=== PATIENT | female | born 1975 | race Two or more races ===

== ENCOUNTER 2016-10-05 10:57 | Inpatient (IN) | payer OTHER ==
[~2016-10-05] VITALS: Ht 167.6 cm; Wt 101.2 kg
[2016-10-05] MEDS ORDERED: MAG HYDROX/AL HYDROX/SIMETH 30 ML UDC PO PRN (14:00)
[2016-10-05] MEDS ORDERED: LORAZEPAM 1 MG TABLET FOR INSOMNIA PO PRN ×2 (14:00→22:00)
[2016-10-05] MEDS ORDERED: MAGNESIUM HYDROXIDE 30 ML UDC PO PRN (14:00)
[2016-10-05] MEDS ORDERED: LORAZEPAM 1 MG TABLET FOR AGITATION PO PRN (14:00)
[2016-10-05 14:52] VITALS: BP 141/80
--- NOTE | 2016-10-05 15:04 | NUR ---
MS/public transit bus driver Patient admitted from Dr Tello's office for clinical trial for new schizo medication. Fully admitted, skin intact, no IV access, awaiting orders from Dr Tello.
--- NOTE | 2016-10-05 15:07 | NUR ---
MS/RN MRSA MRSA swab obtained.
[2016-10-05 15:47] VITALS: BP 131/86
[2016-10-05 16:17] VITALS: BP 131/86
--- NOTE | 2016-10-05 17:41 | NUR ---
MS/RN Orders Dr Tello called for second time to get clinical trial orders.
--- NOTE | 2016-10-05 18:38 | NUR ---
MS/RN End note No changes at this time, last pain medication administered at 1820. Dressing on sacral area changed, redressed with meplielx. Will endorse to hourly shift. Addendum: 10/05/16 at 1938 by JEFFERSON AGUILERA RN WRONG NOTE, WRONG PT.
--- NOTE | 2016-10-05 18:38 | NUR ---
MS/RN End note Dr Tello at bedside giving orders. Patient has remained calm and cooperative.
[2016-10-05 19:00] VITALS: BP 126/79
--- NOTE | 2016-10-05 19:30 | NUR ---
MS RN NOTES RECEIVED ON BED AWAKE,ALERT,ORIENTED X4,ON CLINICAL TRIALS FOR PSYCHE MEDS.GIOVANNI AND QUIET,ABLE TO VERBALIZED NEEDS.NO SALINE LOCK,AMBULATORY ,CALL LIGHT IN [facility],NEEDS ANTICIPATED.
[2016-10-05 20:00] VITALS: BP 126/74
[2016-10-05] MEDS: ARIPIPRAZOLE 5 MG TABLET PO SCH (21:59)
--- NOTE | 2016-10-05 22:00 | NUR ---
MS RN NOTES ABILIFY 5MG PO GIVEN ORDERED.REMAINS CALM.
--- NOTE | 2016-10-06 07:25 | NUR ---
MS RN NOTES CALM AND QUIET THRU OUT SHIFT,SLEPT 8 HOURS AT NOC.WILL CONTINUE TO MONITOR BEHAVIOR.REPORT GIVEN TO CRYSTAL ABURTO FOR ANG.
--- NOTE | 2016-10-06 07:45 | NUR ---
RN NOTES RECEIVED PT IN BED. SLEEPING BUT EASY TO AROUSE. IN NO APPARENT DISTRESS. RESPIRATIONS EVEN AND UNLABORED. WILL CONTINUE TO MONITOR. PT'S CALL LIGHT WITHIN REACH
[2016-10-06 08:00] VITALS: BP 102/50
[2016-10-06 08:06] VITALS: BP 102/50
[2016-10-06 16:58] VITALS: BP 118/70
--- NOTE | 2016-10-06 17:58 | NUR ---
RN NOTES PT IN BED. AWAKE, ALERT, ORIENTED X 3. IN NO APPARENT DISTRESS. RESPIRATIONS EVEN AND UNLABORED. DENIES ANY PAIN OR DISCOMFORT. PT NOTED WITH PLEASANT BEHAVIOR- COOPERATIVE TO STAFF. NO DISPLAYED BEHAVIORS THIS SHIFT. WILL ENDORSE TO ONCOMING SHIFT
--- NOTE | 2016-10-06 19:10 | NUR ---
MS RN NOTES RECEIVED PT SITTING UP IN BED, A/O X4. VERBALLY RESPONSIVE , ABLE TO VERBALIZE NEEDS. NO DISTRESS, NO SOB. RESPIRATION IS EVEN AND UNLABORED. DENIES ANY PAIN OR DISCOMFORT AT THIS TIME. ALL NEEDS ATTENDED AND MET. KEPT COMFORTABLE. AFEBRILE. CALL LIGHT WITHIN REACH. WILL CONTINUE TO MONITOR.
[2016-10-06 20:00] VITALS: BP 137/81
[2016-10-06 22:00] VITALS: BP 137/81
[2016-10-06] MEDS: ARIPIPRAZOLE 5 MG TABLET PO SCH (22:03)
--- NOTE | 2016-10-07 00:30 | NUR ---
MS RN NOTES PT ASLEEP AT THIS TIME. NO DISTRESS , NO SOB NOTED. ALL NEEDS ATTENDED AND ET. CALL LIGHT WITHIN REACH. WILL CONT TO MONITOR.
--- NOTE | 2016-10-07 06:41 | NUR ---
MS RN NOTES PT ASLEEP AT THIS TIME, AROUSES EASILY. NO ACUTE DISTRESS, NO SOB NOTED. RESPIRATION IS EVEN AND UNLABORED. NO C/O PAIN OR DISCOMFORT AT THIS TIME. SKIN IS WARM AND DRY TO TOUCH. ALL NEEDS ATTENDED AND MET. KEPT COMFORTABLE. AFEBRILE. CALL LIGHT WITHIN REACH. SAFETY PRECAUTIONS OBSERVED. WILL ENDORSE TO NEXT SHIFT FOR ANG.
--- NOTE | 2016-10-07 07:20 | NUR ---
MS RN NOTES : HOURS OF SLEEP : 8
--- NOTE | 2016-10-07 07:30 | NUR ---
MS/RN Patient received Patient received from rn shift mgr. No needs at this time, will continue to monitor and ensure safety.
[2016-10-07 08:00] VITALS: BP 140/79
[2016-10-07 16:00] VITALS: BP 130/92
--- NOTE | 2016-10-07 18:17 | NUR ---
MS/RN End note Remains with auditory hallucinations, at times appears paranoid and delusional. Cooperative with plan of care. Will endorse to [facility] shift lead.
--- NOTE | 2016-10-07 19:18 | NUR ---
MS RN NOTES RECEIVED PT SITTING UP IN BED. A/OX 3. ABLE TO VERBALIZE NEEDS. NO DISTRESS, NO SOB NOTED. NO C/O PAIN OR DISCOMFORT. ALL NEEDS ATTENDED AND MET. AFEBRILE. SAFETY PRECAUTIONS OBSERVED. CALL LIGHT WITHIN REACH. WILL CONT TO MONITOR.
[2016-10-07 20:00] VITALS: BP 129/77
[2016-10-07 22:00] VITALS: BP 129/77
[2016-10-07] MEDS: ARIPIPRAZOLE 5 MG TABLET PO SCH (22:44)
--- NOTE | 2016-10-08 07:43 | NUR ---
MS RN NOTES PT RESTING AT THIS TIME, AROUSES EASILY. A/OX 3. ABLE TO VERBALIZE NEEDS. NO DISTRESS, NO SOB NOTED. NO C/O PAIN OR DISCOMFORT. ALL NEEDS ATTENDED AND MET. AFEBRILE. SAFETY PRECAUTIONS OBSERVED. CALL LIGHT WITHIN REACH. WILL ENDORSE TO NEXT SHIFT FOR ANG.
--- NOTE | 2016-10-08 07:48 | NUR ---
MS RN NOTES HOURS OF SLEEP : 7
[2016-10-08 08:00] VITALS: BP 148/89
--- NOTE | 2016-10-08 08:00 | NUR ---
MS/RN Patient received Patient received from feeder switchboard operator, no needs at this time, will continue to monitor.
[2016-10-08 16:00] VITALS: BP 133/79
--- NOTE | 2016-10-08 18:15 | NUR ---
MS/RN End note No changes in care, calm and cooperative throughout shift. No behavior concerns, will endorse to dispatch machine runner.
--- NOTE | 2016-10-08 19:30 | NUR ---
MS RN OPENING NOTES: PATIENT SITTING ON BED, AOX4, ON ROOM AIR, BREATHING EVEN AND UNLABORED. APPEARS PLEASANT AND CALM AND IN NO DISTRESS. ABLE TO MAKE NEEDS KNOWN. DENIES ANY PAIN AT THIS TIME. PROVIDED FOR COMFORT AND SAFETY. WILL CONT TO MONITOR.
[2016-10-08 20:00] VITALS: BP 133/79
[2016-10-08 22:00] VITALS: BP 133/79
[2016-10-08] MEDS: ARIPIPRAZOLE 2 MG TABLET PO SCH (22:36)
[2016-10-09] MEDS: ACETAMINOPHEN ES 500 MG TABLET PO PRN (01:10)
--- NOTE | 2016-10-09 01:15 | NUR ---
RN NOTES: PATIENT COMPLAINED OF HEADACHE, AND ASKED FOR TYLENOL. ADMINISTERED TYLENOL 1000 MG PO PRN. OFFERED SOME SNACKS. WILL CON TO MONITOR.
--- NOTE | 2016-10-09 07:03 | NUR ---
MS RN CLOSING NOTES: PATIENT IN BED, AOX4. ON ROOM AIR, BREATHING EVEN AND UNLABORED. NO ACUTE CHANGE IN CONDITION NOTED THROUGH SHIFT. BEHAVIOR WAS PLEASANT AND CALM THROUGH NIGHT. WAS ABLE TO HAVE 5 HOURS OF SLEEP. PROVIDED FOR COMFORT AND SAFETY. WILL ENDORSE TO AM RN FOR ANG.
--- NOTE | 2016-10-09 07:10 | NUR ---
MS RN NOTES RECEIVED PATIENT IN BED SLEEPING, AROUSES EASILY. BREATHING EVEN AND NON LABORED. CALL LIGHT WITHIN REACH. PATIENT IS ON CLINICAL TRIAL UNDER DR. SYKES. WILL CON TO MONITOR.
[2016-10-09 08:00] VITALS: BP 133/78
[2016-10-09 16:00] VITALS: BP 123/72
[2016-10-09 16:10] VITALS: BP 123/72
--- NOTE | 2016-10-09 18:25 | NUR ---
MS RN CLOSING NOTES PATIENT IN BED, NOT IN DISTRESS. V/S REMAINS STABLE, APPEARS CALM AND RELAXED. PATIENT IS AMBULATORY, COOPERATIVE AND NO EPISODE OF AGITATED BEHAVIOR DURING THE SHIFT. ON CLINICAL TRIAL STUDY. NO C/O PAIN OR ANY DISCOMFORT. CALL LIGHT WITHIN REACH. WILL ENDORSE TO CARPENTER REPAIRER RN FOR CONTINUITY OF CARE.
--- NOTE | 2016-10-09 19:55 | NUR ---
MS RN INITIAL NOTES: RECEIVED REPORT FROM PITER ABURTO. PT ON BED, AWAKE, A/O X3, CALM AND COOPERATIVE. ON ROOM AIR RESPIRATION EVEN AND UNLABORED. DENIES ANY PAIN OR DISCOMFORT AT THIS TIME. NO IV PER MD. SAFETY PRECAUTIONS FOR FALL INITIATED CALL LIGHT IN REACH, WILL CONTINUE TO MONITOR
[2016-10-09 20:00] VITALS: BP 136/72
--- NOTE | 2016-10-09 20:00 | NUR ---
MS RN NOTES: PT ON CLINICAL TRIAL BY DR SYKES
--- NOTE | 2016-10-09 21:30 | NUR ---
ms rn notes: pt claimed she doesnt have any plan of hurting herself, pt calm and cooperative, interacts when asked, very appreciative and thankful.
[2016-10-09] MEDS: ARIPIPRAZOLE 2 MG TABLET PO SCH (22:34)
--- NOTE | 2016-10-10 02:08 | NUR ---
MS RN NOTES: SEEN PT SLEEPING, APPEARS CALM AND COMFORTABLE, NO FACIAL GRIMACE NOTED
--- NOTE | 2016-10-10 07:04 | NUR ---
ms rn closing notes: pt on bed, awake, remains a/o x3, no sob noted, denies any plan of hurting herself, remains calm and cooperative. hours of sleep is 8hrs. vs remains stable, needs attended. safety precautions for fall remains engaged. call light in reach. will endorse to day rn for loki.
--- NOTE | 2016-10-10 07:10 | NUR ---
MS RN OPENING RECEIVED PATIENT A/OX4 DENIES PAIN, SOB DIFFICULTY BREATHING. PATIENT APPEARS COMFORTABLE AND STATES NO NEEDS. RESPIRATIONS EQUAL AND UNLABORED. CALL LIGHT IN REACH, BED LOWERED AND LOCKED, RAILS UPX2 FOR SAFETY AND WILL ROUND Q2H OR LESS PER NEEDS
[2016-10-10 08:00] VITALS: BP 135/91
[2016-10-10 16:00] VITALS: BP 123/79
[2016-10-10 20:00] VITALS: BP 123/85
[2016-10-10 20:07] VITALS: BP 123/85
[2016-10-10] MEDS: ARIPIPRAZOLE 2 MG TABLET PO SCH (21:40)
--- NOTE | 2016-10-11 07:09 | NUR ---
MS RN CLOSING PT STABLE NO COMPLICATIONS. PLEASANT THROUGHOUT DAY AND NIGHT. PATIENT ABLE TO SLEEP 8 HOURS. ALL NEEDS MET AND CALL LIGHT IN REACH, BED LOWERED AND LOCKED, RAILS UPX3 FOR SAFETY. CARE ENDORSED TO RN AT THIS TIME
--- NOTE | 2016-10-11 07:30 | NUR ---
MS/RN Patient received Patient received from warehouse shift supervisor, no needs at this time. Call light within reach, will continue to monitor and ensure safety.
[2016-10-11 08:00] VITALS: BP 132/90
[2016-10-11 16:00] VITALS: BP 130/72
--- NOTE | 2016-10-11 18:47 | NUR ---
MS/RN End note No changes in plan of care at this time. Needs to be NPO from 2100 this evening until blood test tomorrow. Patient aware and in agreement. Seen by Dr Tello, no new orders. Will endorse to shift engineer.
--- NOTE | 2016-10-11 19:30 | NUR ---
MSRN FULLY AWAKE, RESTING QUIETLY, NO NEEDS FOR NOW. REMINDED NOTHING BY MOUTH STARTING 9PM. VERBALIZES UNDERSTANDING.
[2016-10-11 20:18] VITALS: BP 130/71
--- NOTE | 2016-10-11 21:00 | NUR ---
MSRN NPO STARTED, WANTED TO TAKE SHOWER. PATIENT INDEPENDENT, SAFETY PRECAUTIONS EMPHASIZED WELL UNDERSTOOD.
--- NOTE | 2016-10-11 23:45 | NUR ---
YONI SLEEPING AT THIS TIME, CLOSELY WATCHED.
--- NOTE | 2016-10-12 06:51 | NUR ---
MSRN TOTAL HOURS SLEEP 7HOURS
[2016-10-12 08:00] VITALS: BP 135/75
--- NOTE | 2016-10-12 08:00 | NUR ---
MS RN NOTES PATIENT PICKED UP TO TAKE FOR BLOOD DRAW AT CLINIC. PATIENT ALERT, ORIENTED X3 IN NO DISTRESS. AMBULATORY. VS WNL.
--- NOTE | 2016-10-12 11:00 | NUR ---
MS RN NOTES PATIENT RETURNED FROM CLINIC, WILL CONTINUE TO MONITOR.
[2016-10-12] MEDS ORDERED: LORAZEPAM 1 MG TABLET FOR AGITATION PO PRN (14:00)
[2016-10-12 16:00] VITALS: BP 146/83
--- NOTE | 2016-10-12 18:00 | NUR ---
MS RN NOTES PATIENT IN BED RESTING IN STABLE CONDITION NOTED WITH 4 HOURS OF SLEEP WITHIN THE SHIFT. PATIENT COMPLIANT WITH MEDICATION. WILL ENDORSE CARE TO PM SHIFT.
--- NOTE | 2016-10-12 19:40 | NUR ---
MSRN SEEN BY DR SYKES. NO FURTHER ORDERS MADE. PATIENT REMAINS CALM AND COOPERATIVE. ALL NEEDS MADE, TO CONTINUE
[2016-10-12 20:00] VITALS: BP 140/70
[2016-10-12] MEDS ORDERED: LORAZEPAM 1 MG TABLET FOR INSOMNIA PO PRN (22:00)
--- NOTE | 2016-10-12 22:00 | NUR ---
MSRN RESTING QUIETLY. NO NEEDS FOR NOW.
--- NOTE | 2016-10-13 02:44 | NUR ---
YONI HAS BEEN SLEEPING SINCE 2299. CLOSELY WATCHED
--- NOTE | 2016-10-13 06:16 | NUR ---
msrn total hours sleep 8 hrs
--- NOTE | 2016-10-13 07:30 | NUR ---
MS/RN Patient received Patient received from supervisor phosphatic fertilizer. No needs, denies any pain or discomfort. Will continue to monitor.
[2016-10-13 08:00] VITALS: BP 149/72
[2016-10-13] MEDS: INVEST MED MK-8189 MISC 1 CAP EA PO SCH (08:13)
[2016-10-13] MEDS: INVEST MED MK-8189 MISC 1 TAB EA PO SCH (08:14)
--- NOTE | 2016-10-13 09:00 | NUR ---
MS/RN Medications Investigational medications administered as per order.
--- NOTE | 2016-10-13 12:37 | NUR ---
MS/RN Behavior Patient remains calm and cooperative with plan of care. No behavioral outbursts.
[2016-10-13 16:00] VITALS: BP 130/79
--- NOTE | 2016-10-13 18:23 | NUR ---
MS/RN End note No changes in plan of care. Remains cooperative with plan of care. Admits to some auditory hallucinations. Will endorse to table games shift manager.
--- NOTE | 2016-10-13 19:30 | NUR ---
MS RN OPENING NOTES: PATIENT IN BED, AOX4, ON ROOM AIR, BREATHING EVEN AND UNLABORED. APPEARS CALM, AND WHEN ASKED IF THERE IS ANYTHING THAT SHE FEELS OUT OF THE ORDINARY, SHE STATED THAT SHE HAS A THROBBING HEADACHE SCALED AT 10/10, AND THEN ASKED FOR TYLENOL. PATIENT DENIES HAVING ANY VISUAL OR AUDITORY HALLUCINATIONS AT THIS TIME. PROVIDED FOR COMFORT AND SAFETY. WILL CONT TO MONITOR.
[2016-10-13 20:00] VITALS: BP 132/77
[2016-10-13] MEDS: ACETAMINOPHEN ES 500 MG TABLET PO PRN (20:18)
--- NOTE | 2016-10-13 20:19 | NUR ---
RN NOTES: PATIENT COMPLAINED OF THROBBING HEADACHE SCALED 10/10. TYLENOL 1000 MG GIVEN PER REQUEST. WILL CONT TO MONITOR.
[2016-10-13 22:00] VITALS: BP 146/78
--- NOTE | 2016-10-14 06:50 | NUR ---
MS RN CLOSING NOTES: PATIENT IN BED, AOX4, ON ROOM AIR, BREATHING EVEN AND UNLABORED. APPEARS CALM AND IN NO DISTRESS. DENIES ANY PAIN OR HEADACHE AT THIS TIME. PATIENT ALSO DENIES HAVING ANY VISUAL OR AUDITORY HALLUCINATIONS THROUGH SHIFT. WAS ABLE TO HAVE 8 HRS OF SLEEP FOR THIS NIGHT. NO ACUTE CHANGE IN CONDITION NOTED THROUGH SHIFT. PROVIDED FOR COMFORT AND SAFETY. WILL ENDORSE TO AM RN FOR ANG.
--- NOTE | 2016-10-14 07:30 | NUR ---
MS/RN Patient received Patient received from [facility]. No needs, denies pain or discomfort. Calm and cooperative with plan of care. Will continue to monitor and ensure safety.
[2016-10-14 08:00] VITALS: BP 130/95
[2016-10-14] MEDS: INVEST MED MK-8189 MISC 1 TAB EA PO SCH (08:02)
[2016-10-14] MEDS: INVEST MED MK-8189 MISC 1 CAP EA PO SCH (08:02)
--- NOTE | 2016-10-14 08:55 | NUR ---
MS/RN Medications Investigational medications (1 pill/1 capsule) administered as ordered.
[2016-10-14 16:12] VITALS: BP 146/78
--- NOTE | 2016-10-14 18:21 | NUR ---
MS/RN End note No concerns today. Behavior has been withdrawn, but cooperative. Admits to some auditory hallucinations, sometimes paranoid. Will continue to monitor and ensure safety.
[2016-10-14 20:00] VITALS: BP 143/86
[2016-10-14 23:50] VITALS: BP 143/86
--- NOTE | 2016-10-15 06:35 | NUR ---
PATIENT IS RESTING COMFORTABLY, NO SOB, DENIES ANY PAIN, REMAINED CALM AND COOPERATIVE, NO BEHAVIOR CHANGE. SLEPT 8 HOURS DURING SHIFT. KEPT SAFE AND COMFORTABLE, CALL LIGHT WITHIN REACH.
--- NOTE | 2016-10-15 07:40 | NUR ---
RN NOTES RECEIVED PATIENT IN BED, PLEASANT, CALM, NO RESPIRATORY DISTRESS, TOLERATING ROOM AIR, 02 SAT 97%, DENIES ANY PAIN AT THIS TIME, ADMITTED TO HAVING AUDITORY HALLUCINATIONS, DENIES ANY VISUAL HALLUCINATION AND PARANOIA AT THIS TIME. PER PATIENT " I HEAR A FEMALE VOICE TELLING ME, I'M GONNA GET YOU." PATIENT IS AWARE THE VOICE IS NOT REAL. KEPT SAFE AND COMFORTABLE, CALL LIGHT WITHIN REACH.
[2016-10-15 08:00] VITALS: BP 151/94
[2016-10-15] MEDS: INVEST MED MK-8189 MISC 2 CAP EA PO SCH (08:43)
[2016-10-15] MEDS: INVEST MED MK-8189 MISC 2 TAB EA PO SCH (08:43)
[2016-10-15 16:04] VITALS: BP 127/78
--- NOTE | 2016-10-15 18:57 | NUR ---
RN NOTES AMBULATING IN HALLS; REQUESTING EXTRA MEAL; DIETARY DEPT. NOTIFIED; NO ACUTE DISTRESS; WILL ENDORSE TO PM NURSE.
[2016-10-15 20:00] VITALS: BP 149/85
--- NOTE | 2016-10-15 20:00 | NUR ---
MS RN OPENING NOTES RECEIVED REPORT FROM NIGHT NURSE. PT IS A/0 X4. PATIENT WAS RESTING IN BED WITH SIDE RAILS UP X2, DENIED SOB, BED IN LOCKED POSITION, CALL LIGHT WITHIN REACH. PATIENT COMPLAINED OF HEADACHE AND WILL GIVE PT PRN MED TYLENOL. WILL CONTINUE TO MONITOR AND ASSESS PATIENT.
[2016-10-15] MEDS: ACETAMINOPHEN ES 500 MG TABLET PO PRN (20:08)
--- NOTE | 2016-10-15 20:09 | NUR ---
ms rn notes: pt c/o headache requesting for her tylenol, prn tylenol es 1000mg tab po administered to the pt at this time, will continue to monitor
--- NOTE | 2016-10-15 21:00 | NUR ---
MS RN NOTES: PT DENIES ANY PLAN OF HURTING HERSELF, PT CALM AND COOPERATIVE, MEDICATION COMPLIANT
[2016-10-15 22:57] VITALS: BP 149/85
--- NOTE | 2016-10-16 00:06 | NUR ---
MS RN NOTES: SEEN PT SLEEPING COMFORTABLY, NO FACIAL GRIMACE NOTED
--- NOTE | 2016-10-16 00:27 | NUR ---
MS RN NOTES VITAL SIGNS SHORT FORM WAS ENTERED 2256 WHEN IT SHOULD HAVE BEEN ENTERED 1999 WHEN IT WAS TAKEN.
--- NOTE | 2016-10-16 07:29 | NUR ---
MS RN NOTES: PT SLEPT FOR 9HRS
--- NOTE | 2016-10-16 07:30 | NUR ---
MS RN AM NOTES PT SITTING IN BED, AAO X 4, CALM COOPERATIVE. ON ROOM AIR, NOT IN ANY DISTRESS. DENIES ANY PAIN AT THIS TIME. NO IV ACCESS. AMBULATORY, NO SKIN ISSUES. CALL LIGHT WITHIN REACH. BED LOW LOCKED. SR UP X 2, INSTRUCTED TO CALL FOR ASSISTANCE. SAFETY MEASURES IN PLACE. WILL CONTINUE TO MONITOR.
--- NOTE | 2016-10-16 07:30 | NUR ---
ms nurses closing notes Gave report to morning nurse. Patient is resting comfortably in bed. No s/s of distress or pain. Bed in low position, side rails up x2, and call light within reach.
[2016-10-16 08:00] VITALS: BP 151/96
[2016-10-16] MEDS: INVEST MED MK-8189 MISC 2 CAP EA PO SCH (08:27)
[2016-10-16] MEDS: INVEST MED MK-8189 MISC 2 TAB EA PO SCH (08:27)
--- NOTE | 2016-10-16 09:30 | NUR ---
MS RN NOTES ADMINISTERED INVESTIGATIONAL MEDS EARLIER.
[2016-10-16 16:00] VITALS: BP 136/87
[2016-10-16] MEDS: ACETAMINOPHEN ES 500 MG TABLET PO PRN (17:05)
--- NOTE | 2016-10-16 17:05 | NUR ---
MS RN NOTES PATIENT C/O HEADACHE. ADMINISTERED TYLENOL 1GM.
[2016-10-16 18:00] VITALS: BP 136/87
--- NOTE | 2016-10-16 18:05 | NUR ---
MS RN NOTES NO COMPLAIN OF HEADACHE, RELIEVED BY TYLENOL.
--- NOTE | 2016-10-16 18:17 | NUR ---
MS RN NOTES PT RESTING IN BED, AAO X 4, ON ROOM AIR, NOT IN ANY DISTRESS. DENIES ANY PAIN AT THIS TIME. NO IV ACCESS. AMBULATORY, NO SKIN ISSUES. CALL LIGHT WITHIN REACH. BED LOW LOCKED. SR UP X 2, INSTRUCTED TO CALL FOR ASSISTANCE. VSS. SAFETY MEASURES IN PLACE. ALL NEEDS MET. WILL ENDORSE TO NEXT SHIFT FOR ANG. PT SEEN BY DR. SYKES EARLIER. NO NEW ORDERS.
--- NOTE | 2016-10-16 19:50 | NUR ---
MS RN INITIAL NOTES: PT AWAKE, A/O X4, CALM AND COOPERATIVE, DENIES ANY CHEST PAIN DISCOMFORT AT THIS TIME, REQUESTED TO TAKE A SHOWER AND HAVE HER CLOTHES TO BE WASH, PT ASSISTED TO SHOWER ROOM. WITH REGARDS TO THE CLOTHES, TALKED TO EVS, STATED TO RELAY TO HEEL ATTACHER FROM NIGHT TO BRING THE CLOTHES TO WASH ROOM/LAUNDRY AREA AT NIGHT. INFORMED HEEL ATTACHER IMMACULATE. PT HAS NO IV ACCESS PER DR SYKES. WILL CONTINUE TO MONITOR AND REASSESS
[2016-10-16 20:00] VITALS: BP 135/81
--- NOTE | 2016-10-16 21:00 | NUR ---
MS RN NOTES: PT DENIES ANY SUICIDAL IDEATION, BUT ADMITTED TO HEARING VOICES
--- NOTE | 2016-10-17 01:55 | NUR ---
MS RN NOTES: SEEN PT SLEEPING AT THIS TIME
--- NOTE | 2016-10-17 06:47 | NUR ---
MS RN CLOSING NOTES: PT REMAINS CALM AND COOPERATIVE THROUGHOUT THE NIGHT. PT RESTED/SLEPT FROM 2200 TILL 0700AM WITH A TOTAL OF 9HRS OF SLEEP. NOT IN ANY DISTRESS. NO FACIAL GRIMACE NOTED. PT DENIES ANY PLAN OF HURTING ONESELF. ADMITTED TO STILL HEARING FEMALE VOICES. VS REMAINS STABLE, NEEDS ATTENDED. SAFETY PRECAUTION FOR FALL REMAINS ENGAGED, CALL LIGHT IN REACH, WILL ENDORSE TO DAY RN FOR ANG.
[2016-10-17 08:00] VITALS: BP 126/73
[2016-10-17] MEDS: INVEST MED MK-8189 MISC 2 TAB EA PO SCH (08:33)
[2016-10-17] MEDS: INVEST MED MK-8189 MISC 2 CAP EA PO SCH (08:33)
--- NOTE | 2016-10-17 09:30 | NUR ---
MS RN NOTES ADMINISTERED DUE MEDS.
[2016-10-17] MEDS: ACETAMINOPHEN ES 500 MG TABLET PO PRN ×2 (12:27→21:10)
[2016-10-17 16:00] VITALS: BP 123/78
[2016-10-17 18:00] VITALS: BP 123/78
--- NOTE | 2016-10-17 18:13 | NUR ---
MS RN NOTES PT RESTING IN BED, AAO X 4, ON ROOM AIR, NOT IN ANY DISTRESS. DENIES ANY PAIN AT THIS TIME. NO IV ACCESS. AMBULATORY, NO SKIN ISSUES. CALL LIGHT WITHIN REACH. BED LOW LOCKED. SR UP X 2, INSTRUCTED TO CALL FOR ASSISTANCE. VSS. SAFETY MEASURES IN PLACE. ALL NEEDS MET. WILL ENDORSE TO NEXT SHIFT FOR ANG.
--- NOTE | 2016-10-17 19:30 | NUR ---
MS RN NOTES RECEIVED ON BED A/O X4,VERY PLEASANT TO TALK WITH.NO IV ACCESS.ABLE TO VERBALIZED NEEDS.CALL LIGHT IN REACH,NEEDS ANTICIPATED.
[2016-10-17 20:00] VITALS: BP 153/98
--- NOTE | 2016-10-17 21:10 | NUR ---
MS RN NOTES C/O HEADACHE,MEDICATED WITH TYLENOL 1GM PO PER PATIENT REQUEST.
--- NOTE | 2016-10-18 02:00 | NUR ---
MS RN NOTES SOUND ASLEEP,KEPT WARM
--- NOTE | 2016-10-18 07:20 | NUR ---
RN NOTE: RECEIVED PATIENT WHILE RESTING IN BED, AWAKE AND ALERT. PATIENT IS CALM AND COOPERATIVE. NO DISTRESS/DISCOMFORT. PATIENT MADE COMFORTABLE, ALL NEEDS ATTENDED TO, SAFETY MEASURES IN PLACE, WILL CONTINUE TO MONITOR.
--- NOTE | 2016-10-18 07:32 | NUR ---
MS RN NOTES SLEPT 8 HOURS AT NIGHT,TYLENOL EFFECTIVE FOR HEADACHE.ENDORSED TO ELLIOTT ABURTO FOR ANG.
[2016-10-18 08:00] VITALS: BP 130/71
--- NOTE | 2016-10-18 08:10 | NUR ---
MS RN NOTE: PATIENT WENT DOWNSTAIRS FOR A SMOKE BREAK, ATTENDED WITH ERCO MACHINE OPERATOR. NO COMPLICATIONS NOTED, WILL CONTINUE TO MONITOR.
[2016-10-18 08:30] VITALS: BP 130/71
[2016-10-18] MEDS: INVEST MED MK-8189 MISC 3 TAB EA PO SCH (08:37)
[2016-10-18] MEDS: INVEST MED MK-8189 MISC 3 CAP EA PO SCH (08:37)
--- NOTE | 2016-10-18 11:00 | NUR ---
PATIENT IS ASLEEP AT THIS TIME UPON ROUNDING. NO COMPLICATIONS NOTED, WILL CONTINUE TO MONITOR.
[2016-10-18] MEDS: ACETAMINOPHEN ES 500 MG TABLET PO PRN ×2 (12:37→20:43)
--- NOTE | 2016-10-18 12:37 | NUR ---
MS RN NOTE: PATIENT C/O MINOR HEADACHE, ASKING FOR TYLENOL. TYLENOL ES GIVEN ORALLY. NO COMPLICATIONS NOTED, WILL CONTINUE TO MONITOR.
--- NOTE | 2016-10-18 15:39 | NUR ---
PATIENT REQUESTING SNACKS AT THIS TIME. 2 VANILLA ICE CREAMS AND COFFEE GIVEN, WILL CONTINUE TO MONITOR.
[2016-10-18 16:00] VITALS: BP 130/90
--- NOTE | 2016-10-18 17:45 | NUR ---
MS RN NOTE: RECEIVED VERBAL ORDER FROM DR. SYKES TO CHANGE ALL STANDING ORDERS OF ATIVAN. ATIVAN 1MG Q6H PRN AGITATION IS CHANGED TO ATIVAN 1MG Q4H PRN AGITATION. ALSO, ATIVAN 1MG HS PRN INSOMNIA IS CHANGED TO ATIVAN 2MG HS PRN INSOMNIA. ORDERS WRITTEN AND FAXED TO PHARMACY. ALL CURRENT START AND STOP DATES TO STAY THE SAME PER MD.
--- NOTE | 2016-10-18 17:55 | NUR ---
MS RN NOTE: PATIENT REQUESTING SECOND PLATE FOR DINNER. ORDERED FROM KITCHEN, WILL CONTINUE TO MONITOR.
--- NOTE | 2016-10-18 18:33 | NUR ---
MS RN NOTE: PATIENT RESTING IN BED, A/OX 3. PATIENT BREATHING EVEN AND UNLABORED ON ROOM AIR. PATIENT REMAINS CALM AND COOPERATIVE, PLEASANT MOOD. NO COMPLICATIONS NOTED, ALL NEEDS ATTENDED TO, SAFETY MEASURES IN PLACE, WILL ENDORSE TO AGRICULTURAL EQUIPMENT TEST ENGINEER FOR ANG.
[2016-10-18] MEDS ORDERED: LORAZEPAM 1 MG TABLET FOR INSOMNIA PO PRN (19:10)
[2016-10-18] MEDS ORDERED: LORAZEPAM 1 MG TABLET FOR AGITATION PO PRN ×2 (19:30)
--- NOTE | 2016-10-18 19:55 | NUR ---
MS RN NOTE: PATIENT RESTING IN BED, NO ACUTE DISTRESS NOTED. BREATHING EVEN AND UNLABORED, NO SOB NOTED. PATIENT CALM AND COOPERATIVE. BED LOCKED AND IN LOWEST POSITION, CALL LIGHT IN REACH. WILL CONTINUE TO MONITOR.
[2016-10-18 20:00] VITALS: BP 145/76
--- NOTE | 2016-10-18 20:50 | NUR ---
MS RN NOTE: PATIENT COMPLAINS OF HEADACHE 3/10, TYLENOL 1000MG ORAL GIVEN PER MD ORDER. WILL CONTINUE TO MONITOR.
--- NOTE | 2016-10-19 06:15 | NUR ---
MS RN NOTE: PATIENT RESTING IN BED, NO ACUTE DISTRESS NOTED. BREATHING EVEN AND UNLABORED, NO SOB NOTED. PATIENT CALM AND COOPERATIVE. PATIENT SLEEP 6 HOURS. BED LOCKED AND IN LOWEST POSITION, CALL LIGHT IN REACH. WILL ENDORSE TO DAY NURSE TO CONTINUE WITH PLAN OF CARE.
[2016-10-19 08:00] VITALS: BP 121/82
--- NOTE | 2016-10-19 08:00 | NUR ---
MS RN AM NOTE: PATIENT RESTING IN BED, NO ACUTE DISTRESS NOTED. BREATHING EVEN AND UNLABORED, NO SOB NOTED. PATIENT CALM AND COOPERATIVE. PATIENT SLEPT 6 HOURS.CRITICAL TRIAL STAFF,RHEA AT BEDSIDE INTERVIEWING THE PATIENTS. BED LOCKED AND IN LOWEST POSITION, CALL LIGHT IN REACH.
[2016-10-19] MEDS: INVEST MED MK-8189 MISC 3 TAB EA PO SCH (08:52)
[2016-10-19] MEDS: INVEST MED MK-8189 MISC 3 CAP EA PO SCH (08:52)
[2016-10-19] MEDS ORDERED: LORAZEPAM 1 MG TABLET FOR AGITATION PO PRN (14:00)
[2016-10-19 16:00] VITALS: BP 125/83
--- NOTE | 2016-10-19 18:59 | NUR ---
PT RESTING IN BED DENYING ANY PAIN OR DISTRESS.ATE 100%DINNER.CALL LIGHT PLACED WITHIN REACH.COMPLIANT WITH MEDS FOR CLINICAL TRIAL.
[2016-10-19 20:00] VITALS: BP 130/80
[2016-10-19 20:05] VITALS: BP 130/80
[2016-10-19] MEDS: ACETAMINOPHEN ES 500 MG TABLET PO PRN (20:52)
--- NOTE | 2016-10-19 21:00 | NUR ---
MS RN NOTE: PATIENT COMPLAINS OF HEADACHE 3/10, TYLENOL 1000MG ORAL GIVEN PER MD ORDER. WILL CONTINUE TO MONITOR.
[2016-10-19] MEDS ORDERED: LORAZEPAM 1 MG TABLET FOR INSOMNIA PO PRN (22:00)
--- NOTE | 2016-10-20 06:20 | NUR ---
MS RN NOTE: PATIENT RESTING IN BED, NO ACUTE DISTRESS NOTED. BREATHING EVEN AND UNLABORED, NO SOB NOTED. PATIENT CALM AND COOPERATIVE. PATIENT SLEPT 7 HOURS. BED LOCKED AND IN LOWEST POSITION, CALL LIGHT IN REACH. WILL ENDORSE TO DAY NURSE TO CONTINUE WITH PLAN OF CARE.
--- NOTE | 2016-10-20 07:30 | NUR ---
MS/RN Patient received Patient received from tie cutter. No needs, all questions and concerns addressed. Call light within reach, will continue to monitor and ensure safety.
[2016-10-20 08:00] VITALS: BP 126/76
[2016-10-20] MEDS: INVEST MED MK-8189 MISC 3 TAB EA PO SCH (08:49)
[2016-10-20] MEDS: INVEST MED MK-8189 MISC 3 CAP EA PO SCH (08:49)
--- NOTE | 2016-10-20 09:02 | NUR ---
MS/RN Medications Investigational medications (three pills/three capsules) administered as ordered.
[2016-10-20 09:05] VITALS: BP 117/72
--- NOTE | 2016-10-20 13:16 | NUR ---
MS/RN Behavior Remains calm and cooperative with plan of care. No behavior concerns at this time.
[2016-10-20 16:00] VITALS: BP 132/77
--- NOTE | 2016-10-20 18:03 | NUR ---
MS/RN End note Cooperative with plan of care although withdrawn. Admits to auditory halluncinations. Will endorse to night auditor.
[2016-10-20] MEDS: ACETAMINOPHEN ES 500 MG TABLET PO PRN (18:43)
--- NOTE | 2016-10-20 19:30 | NUR ---
RN OTES RECEIVED PT. AWAKE ON BED, A/OX4, CALM, COOPERATIVE, CONTINUE TO MONITOR
[2016-10-20 20:00] VITALS: BP 149/86
--- NOTE | 2016-10-21 06:22 | NUR ---
RN NOTES SLEEPING BUT AROUSABLE, FOLLOW INSTRUCTION, CALM , MORNING CARE RENDERED
--- NOTE | 2016-10-21 07:30 | NUR ---
MS/RN OPENING NOTE PT. IS AWAKE IN BED, A&OX4. NOT IN DISTRESS, BREATHING UNLABORED, AND EVEN. PT. IS IN STABLE CONDITION. PT. BED IS IN LOW POSITION, 2 SIDE RAILS UP, AND CALL LIGHT WITHIN REACH.
[2016-10-21 08:00] VITALS: BP 136/78
[2016-10-21] MEDS: INVEST MED MK-8189 MISC 3 TAB EA PO SCH (08:38)
[2016-10-21] MEDS: INVEST MED MK-8189 MISC 3 CAP EA PO SCH (08:38)
[2016-10-21 16:00] VITALS: BP 130/71
[2016-10-21 17:02] VITALS: BP 130/71
--- NOTE | 2016-10-21 19:30 | NUR ---
MS NURSE'S OPENING NOTE RECEIVED REPORT FROM MORNING NURSE. PATIENT WAS RESTING IN BED, SIDE RAILS UP X2, CALL LIGHT WITHIN REACH AND SO SIGNS OF DISTRESS.
--- NOTE | 2016-10-21 19:30 | NUR ---
RN NOTES RECEIVED PT AWAKE ON BED, CALM AND FOLLOW INSTRUCTIONS
--- NOTE | 2016-10-21 19:35 | NUR ---
MS/RN CLOSING NOTE PT. SEEN BY DR. SYKES NO NEW ORDERS.
[2016-10-21 20:00] VITALS: BP 128/70
[2016-10-21] MEDS: ACETAMINOPHEN ES 500 MG TABLET PO PRN (20:20)
--- NOTE | 2016-10-21 20:23 | NUR ---
PT COMPLAINED OF HEADACHE 8/. ADMINISTERED PRN TYLENOL.
[2016-10-21 21:28] VITALS: BP 128/70
--- NOTE | 2016-10-22 06:51 | NUR ---
MS CLOSING NOTES PT IS RESTING IN BED, SIDE RAILS UP X2, BED IN LOCKED POSITION, CALL LIGHT WITHIN REACH. PT SHOWS NO SIGNS OF DISTRESS.
--- NOTE | 2016-10-22 07:11 | NUR ---
MS NURSE'S NOTES- SLEEPING HOURS PATIENT WENT TO BED AT 1 AM AND SHE IS STILL SLEEPING.
--- NOTE | 2016-10-22 07:30 | NUR ---
MS/RN OPENING NOTE PT. IS SLEEPING IN BED. NOT IN DISTRESS, BREATHING UNLABORED, AND EVEN. PT. IS IN STABLE CONDITION. PT. BED IS IN LOW POSITION, 2 SIDE RAILS UP, AND CALL LIGHT WITHIN REACH.
[2016-10-22 08:00] VITALS: BP 135/90
[2016-10-22] MEDS: INVEST MED MK-8189 MISC 3 CAP EA PO SCH (09:22)
[2016-10-22] MEDS: INVEST MED MK-8189 MISC 3 TAB EA PO SCH (09:22)
[2016-10-22] MEDS: IBUPROFEN 200 MG TABLET PO PRN ×2 (11:27→20:13)
--- NOTE | 2016-10-22 12:00 | NUR ---
MS/RN PT. C/O HEADACHE PAIN 04/12 AND REQUESTED PAIN MEDICATION MOTRIN. MOTRIN WAS GIVEN 600MG.
--- NOTE | 2016-10-22 12:30 | NUR ---
MS/LEAD NITRATE PROCESSOR PT. SAID HER HEADACHE PAIN IS A 5/10, AND THAT THE MOTRIN IS MORE EFFECTIVE THAN TYLENOL.
[2016-10-22 16:00] VITALS: BP 120/70
--- NOTE | 2016-10-22 19:21 | NUR ---
MS/RN CLOSING NOTE PT. WAS SEEN BY DR. SYKES. PT. IS NOT IN DISTRESS, NO SOB. CALL LIGHT WITHIN REACH.
--- NOTE | 2016-10-22 19:30 | NUR ---
MS RN NOTES RECEIVED ON BED AWAKE,ALERT,ORIENTED X4,ABLE TO VERBALIZED NEEDS,NO IV ACCESS,ON CLINICAL STUDY FOR PSYCHE MEDS,C/O HEADACHE 7/10 ON PAIN SCALE.WILL MEDICATE ACCORDINGLY.CALL LIGHT IN REACH,NEEDS ANTICIPATED.
[2016-10-22 20:00] VITALS: BP 121/77
--- NOTE | 2016-10-22 20:13 | NUR ---
MS ABURTO NOTES PAIN MANAGEMENT C/O OF HEADACHE 01/10 ON PAIN SCALE,MOTRIN 6--MG ,1 TAB PO GIVEN PER PATIENT REQUEST.WILL MONITOR FOR RELIEF. Addendum: 10/23/16 at 0219 by SINTIA LEUNG RN GIVEN 600MG MOTRIN 3 TABS (200MG/TAB)
--- NOTE | 2016-10-23 | NUR ---
MS RN NOTES IN ROOM,SLEEPING
--- NOTE | 2016-10-23 06:16 | NUR ---
MS RN NOTES SLEPT ABOUT 8-9 HOURS AT NIGHT,MED COMPLIANT.NO AGITATION NOTED.CALL LIGHT IN REACH,NEEDS ATTENDED.WILL ENDORSE TO DAY NURSE FOR ANG.
--- NOTE | 2016-10-23 07:15 | NUR ---
MS RN NOTES PATIENT IN BED, SLEEPING, AROUSES EASILY. RESPIRATION EVEN AND NON LABORED. PATIENT IS ON CLINICAL TRIAL STUDY. CALL LIGHT WITHIN REACH. BED LOW AND LOCKED, SIDE RAILS UP X2. PATIENT IS ON CLINICAL STUDY TRIALS UNDER DR. SYKES. WILL CONT TO MONITOR.
--- NOTE | 2016-10-23 07:26 | NUR ---
MS NURSE'S CLOSING NOTES GAVE REPORT TO MORNING NURSE. PATIENT IS RESTING IN BED, SIDE RAILS UP X2, CALL LIGHT WITHIN REACH AND NO SIGNS OF DISTRESS OR SOB.
[2016-10-23 08:00] VITALS: BP 121/67
[2016-10-23] MEDS: INVEST MED MK-8189 MISC 3 TAB EA PO SCH (08:21)
[2016-10-23] MEDS: INVEST MED MK-8189 MISC 3 CAP EA PO SCH (08:21)
[2016-10-23] MEDS: IBUPROFEN 200 MG TABLET PO PRN (10:27)
--- NOTE | 2016-10-23 10:29 | NUR ---
PATIENT C/O HEADACHE, GIVEN IBUPROFEN 600MG PO PRN, WILL REASSESS.
[2016-10-23 16:00] VITALS: BP 112/70
--- NOTE | 2016-10-23 18:56 | NUR ---
MS RN CLOSING NOTES PATIENT IN BED, NOT IN DISTRESS. NO SOB NOTED. AMBULATORY, STEADY GAIT AND BALANCE. APPEARS CALM AND RELAX, COOPERATIVE WITH STAFF. ON CLINICAL TRIAL STUDY. WILL ENDORSE TO SALES REPRESENTATIVE LIVESTOCK RN FOR CONTINUITY OF CARE.
[2016-10-23 19:00] VITALS: BP 125/79
--- NOTE | 2016-10-23 19:15 | NUR ---
MS RN OPENING NOTES: RECEIVED PATIENT SITTING UP ON CHAIR. PATIENT A/O X4. NO SOB OR DISTRESS NOTED. SKIN IS INTACT. KEPT CLEAN, DRY, AND COMFORTABLE. CALL LIGHT WITHIN PATIENT'S REACH. PATIENT IS AMBULATORY AND GAIT IS STEADY. BED KEPT IN LOCKED, LOWEST POSITION, AND SIDE RAILS X2 UP. WILL CONTINUE TO MONITOR PT.
[2016-10-23 20:00] VITALS: BP 125/79
--- NOTE | 2016-10-23 22:00 | NUR ---
MS RN NOTES: PT DENIES ANY PLAN OF HURTING HERSELF, PT CALM AND COOPERATIVE, COMPLIANT WITH MEDICATIONS, STATED SHE'S FEELING BETTER
--- NOTE | 2016-10-24 00:25 | NUR ---
MS RN NOTES: SEEN PT SLEEPING AT THIS TIME.APPEARS COMFORTABLE, NOT IN DISTRESS
--- NOTE | 2016-10-24 06:54 | NUR ---
MS RN CLOSING NOTES ALL NEEDS WERE ATTENDED. PATIENT IN BED, AWAKE. PT A/O X4. NO SIGNS AND SYMPTOMS OF DISTRESS NOTED. NO SOB NOTED. PT AMBULATORY WITH STEADY GAIT AND BALANCE. PT ON CLINICAL TRIAL STUDY. KEPT CLEAN, DRY, AND COMFORTABLE. PT ON ROOM AIR AND TOLERATING WELL. BED IN LOWEST, LOCKED POSITION, AND SIDE RAILS X 2 UP. PT SLEPT FOR 5.5 HOURS. WILL ENDORSE TO DAY SHIFT NURSE FOR CONTINUITY OF CARE.
--- NOTE | 2016-10-24 07:30 | NUR ---
MS/RN Patient received See later note for opening assessment.
[2016-10-24 08:00] VITALS: BP 121/82
[2016-10-24] MEDS: INVEST MED MK-8189 MISC 3 TAB EA PO SCH (08:52)
[2016-10-24] MEDS: INVEST MED MK-8189 MISC 3 CAP EA PO SCH (08:52)
--- NOTE | 2016-10-24 10:11 | NUR ---
MS/RN Patient received Patient received from material handler 1st shift. No needs at this time, calm and cooperative. No behavior concerns. Call light within reach, will continue to monitor and ensure safety.
[2016-10-24 10:37] VITALS: BP 121/82
--- NOTE | 2016-10-24 14:00 | NUR ---
MS/RN Behavior Has remained calm and cooperative this morning, no behavior concerns.
[2016-10-24 16:00] VITALS: BP 124/64
[2016-10-24 16:26] VITALS: BP 124/64
--- NOTE | 2016-10-24 18:02 | NUR ---
MS/RN End note No changes in plan of care, will endorse to warehouse supervisor 3rd shift. Patient has remained calm and cooperative today.
[2016-10-24] MEDS: IBUPROFEN 200 MG TABLET PO PRN (18:57)
--- NOTE | 2016-10-24 18:59 | NUR ---
MS/RN MOTRIN PT. REQUESTED A MOTRIN DUE TO HEADACHE PAIN 04/12. MOTRIN WAS GIVEN.
--- NOTE | 2016-10-24 19:30 | NUR ---
MS/RN OPENING NOTES PT AWAKE, RESTING COMFORTABLY IN BED. A/OX4, NO COMPLAINTS OF PAIN AT THIS TIME. NO S/S OF DISTRESS NOTED. PT IS CALM AND COOPERATIVE. NOTES AUDITORY HALLUCINATIONS ON/OFF. DENIES THOUGHT OF SI/HI. BED IN LOW/LOCKED POSITION, CALL LIGHT IN REACH. WILL CONTINUE TO MONITOR
[2016-10-24 20:00] VITALS: BP 122/68
--- NOTE | 2016-10-25 02:00 | NUR ---
MS/RN NOTES PT REMAINS ASLEEP, BREATHING EVEN AND UNLABORED. WILL CONTINUE TO MONITOR
--- NOTE | 2016-10-25 07:19 | NUR ---
MS/RN CLOSING NOTES PT AWAKE, RESTING COMFORTABLY IN BED. ON ROOM AIR, NO S/S OF DISTRESS. DENIES PAIN AT THIS TIME. NO CHANGES OVERNIGHT. PT SLEPT 8HOURS AND STATED SHE "SLEPT WELL". ALL NEEDS MET AND ATTENDED TO. MADE PT COMFORTABLE THROUGHOUT SHIFT. ENDORSED TO AM SHIFT ANG.
--- NOTE | 2016-10-25 07:30 | NUR ---
MS/RN Patient received Patient received from operations supervisor 2nd shift. No needs or concerns at this time, will continue to monitor and ensure safety.
[2016-10-25 08:00] VITALS: BP 113/69
[2016-10-25] MEDS: INVEST MED MK-8189 MISC 3 TAB EA PO SCH (09:20)
[2016-10-25] MEDS: INVEST MED MK-8189 MISC 3 CAP EA PO SCH (09:21)
--- NOTE | 2016-10-25 09:46 | NUR ---
MS/RN Trial medications Trial medications administered as ordered.
[2016-10-25 16:00] VITALS: BP 110/70
--- NOTE | 2016-10-25 18:33 | NUR ---
MS/RN End note Has remained calm and cooperative today, no behavior concerns. Seen by Dr Tello, no new orders. Will endorse to hotel night auditor.
--- NOTE | 2016-10-25 19:30 | NUR ---
RN NOTE; RECEIVED PT SITTING IN BED AWAKE AND ALERT. BREATHING EVENLY. VERY CALM AND PLEASANT. NO PSYCH ISSUES. W/ C/O H/A. TO BE MEDICATED. NEEDS ATTENDED. ASSISTED W/ NEEDS . CALL LIGHT WITHIN REACH. WILL CONT TO MONITOR
[2016-10-25 20:00] VITALS: BP 110/68
[2016-10-25 20:10] VITALS: BP 110/68
[2016-10-25] MEDS: IBUPROFEN 200 MG TABLET PO PRN (20:20)
--- NOTE | 2016-10-25 20:20 | NUR ---
MOTRIN GIVEN ORDERED PER PT'S REQUEST FOR C/O H/A. WILL CONT TO MONITOR
--- NOTE | 2016-10-26 06:50 | NUR ---
RN NOTE; PT AWAKE AND AMBULATORY. BREATHING EVENLY. NO SOB. NO DISTRESS. NO ACUTE CHANGES DURING THE NIGHT. NO C/O HALLUCINATIONS. NOT PARANOID. NO VERBALIZATION OF SUICIDE, NO A/R TO MEDICATIONS NOTED. NPO FOR BLOOD TEST TODAY. NEEDS ATTENDED. WILL CONT TO MONITOR AND WILL ENDORSE TO AM SHIFT FOR ANG.
[2016-10-26 08:00] VITALS: BP 115/68
--- NOTE | 2016-10-26 08:00 | NUR ---
AM RN NOTES RECEIVED PT IN STABLE CONDITION, AMBULATING IN ROOM, ON NPO PRIOR TO BLOOD DRAW, WILL MONITOR PT.
[2016-10-26] MEDS: INVEST MED MK-8189 MISC 3 TAB EA PO SCH (09:09)
[2016-10-26] MEDS: INVEST MED MK-8189 MISC 3 CAP EA PO SCH (09:09)
[2016-10-26] MEDS ORDERED: LORAZEPAM 1 MG TABLET FOR AGITATION PO PRN (14:00)
[2016-10-26 16:00] VITALS: BP 133/77
[2016-10-26] MEDS: IBUPROFEN 200 MG TABLET PO PRN (17:16)
--- NOTE | 2016-10-26 18:29 | NUR ---
PT ALERT AND ORIENTED, IN STABLE CONDITION, PAIN MEDICATIONS WITH HELP, PROVIDED WITH SECOND TRY FOR DINNER PER PT'S REQUEST, NO BEHAVIOR PROBLEMS NOTED, WILL INDORSE TO NEXT SHIFT FOR ANG.
--- NOTE | 2016-10-26 19:30 | NUR ---
RN NOTE; RECEIVED PT SITTING IN BED AWAKE AND ALERT. BREATHING EVENLY. CALM AND PLEASANT. NO PSYCH ISSUES. DENIED ANY PAIN OR DISCOMFORT . NEEDS ATTENDED. ASSISTED W/ NEEDS . CALL LIGHT WITHIN REACH. WILL CONT TO MONITOR
[2016-10-26 20:00] VITALS: BP 116/66
--- NOTE | 2016-10-26 20:07 | NUR ---
S/B DR. FLAHERTY W/ SAMANTHAO.
[2016-10-26] MEDS ORDERED: LORAZEPAM 1 MG TABLET FOR INSOMNIA PO PRN (22:00)
--- NOTE | 2016-10-27 06:56 | NUR ---
RN NOTE; PT REMAINED CALM AND STABLE DURING THE TUBE MAKING MACHINE OPERATOR . NO ACUTE CHANGES. NO PSYCH OR BEHAVIORAL ISSUES. HAD A GOOD NIGHT SLEEP. WILL CONT TO MONITOR AND WILL ENDORSE TO AM SHIFT FOR ANG.
[2016-10-27 08:00] VITALS: BP 125/64
[2016-10-27] MEDS: INVEST MED MK-8189 MISC 3 TAB EA PO SCH (08:32)
[2016-10-27] MEDS: INVEST MED MK-8189 MISC 3 CAP EA PO SCH (08:32)
[2016-10-27 16:00] VITALS: BP 134/76
[2016-10-27] MEDS: IBUPROFEN 200 MG TABLET PO PRN (19:57)
--- NOTE | 2016-10-27 19:58 | NUR ---
Motrin given per pt's request fro c/o h/a. will cont to monitor
[2016-10-27 20:00] VITALS: BP 137/77
--- NOTE | 2016-10-28 06:24 | NUR ---
RN NOTE; PT REMAINED CALM AND STABLE DURING THE HEAD PIECE ASSEMBLER . NO ACUTE CHANGES. NO PSYCH OR BEHAVIORAL ISSUES. HAD A GOOD NIGHT SLEEP. WILL CONT TO MONITOR AND WILL ENDORSE TO AM SHIFT FOR ANG.
--- NOTE | 2016-10-28 07:45 | NUR ---
MS/RN OPENING NOTE PT. IS AWAKE SITTING UP IN BED, A&OX4. BREATHING ON ROOM AIR, NO SOB, AND NOT IN DISTRESS. PT. BED IS IN LOW POSITION, 2 BED RAILS UP, AND CALL LIGHT WITHIN REACH. PT.
[2016-10-28 08:00] VITALS: BP 130/77
[2016-10-28] MEDS: INVEST MED MK-8189 MISC 3 TAB EA PO SCH (08:29)
[2016-10-28] MEDS: INVEST MED MK-8189 MISC 3 CAP EA PO SCH (08:29)
[2016-10-28] MEDS: IBUPROFEN 200 MG TABLET PO PRN ×2 (10:05→23:25)
--- NOTE | 2016-10-28 10:49 | NUR ---
MS/RN MOTRIN PT. REQUESTED FOR MOTRIN DUE TO A HEADACHE, PAIN LEVEL 10/10. MOTRIN 600 MG WAS GIVEN.
[2016-10-28 16:00] VITALS: BP 132/68
[2016-10-28] MEDS: ACETAMINOPHEN ES 500 MG TABLET PO PRN (17:38)
--- NOTE | 2016-10-28 17:41 | NUR ---
MS/THEATRE ARTS PROFESSOR PT. C/O HEADACHE PAIN 04/12, TYLENOL WAS GIVEN.
--- NOTE | 2016-10-28 19:20 | NUR ---
MS/RN CLOSING NOTE PT. A&OX4, NO S/S OF DISTRESS, NO SOB, AND UNLABORED BREATHING. PT. BED IN LOW POSITION, CALL LIGHT WITHIN REACH, AND NEEDS WERE ATTENDED TO. WILL ENDORSE REPORT TO UPHOLSTERED GOODS CRAFTER NURSE.
[2016-10-28 20:00] VITALS: BP 121/75
--- NOTE | 2016-10-28 20:00 | NUR ---
PATIENT IN BED, ALERT AND ORIENTED X4, CALM, PLEASANT, NO SOB, NO RESPIRATORY DISTRESS, COMPLAINING OF 3/10 HEADACHE, RECEIVED TYLENOL 500 MG PRN 2 HOURS. DENIES AUDITORY/VISUAL HALLUCINATIONS. KEPT SAFE AND COMFORTABLE, CALL LIGHT WITHIN REACH.
[2016-10-28 21:12] VITALS: BP 121/75
--- NOTE | 2016-10-28 23:36 | NUR ---
GIVEN MOTRIN 600 MG PO PRN, COMPLAINING OF 6/10 HEADACHE, KEPT COMFORTABLE, CALL LIGHT WITHIN REACH.
--- NOTE | 2016-10-29 06:43 | NUR ---
PATIENT AWAKE AND ALERT, NO SOB, DENIES ANY PAIN AT THIS TIME, GIVEN MOTRIN FOR HEADACHE, SLEPT FOR 7 HOURS, DENIES AUDITORY HALLUCINATIONS AT THIS TIME, KEPT SAFE AND COMFORTABLE, CALL LIGHT WITHIN REACH
--- NOTE | 2016-10-29 07:30 | NUR ---
MS/RN Patient received Patient received from [facility]. No needs at this time, remains calm and cooperative. Call light within reach, will continue to monitor and ensure safety.
[2016-10-29 08:00] VITALS: BP 152/84
--- NOTE | 2016-10-29 08:00 | NUR ---
RN notes ambulating in halls with steady gait; no acute distress at this time; will continue to monitor.
[2016-10-29] MEDS: INVEST MED MK-8189 MISC 3 CAP EA PO SCH (08:54)
[2016-10-29] MEDS: INVEST MED MK-8189 MISC 3 TAB EA PO SCH (08:54)
--- NOTE | 2016-10-29 09:02 | NUR ---
MS/RN Medications Investigational medications administered as ordered.
[2016-10-29] MEDS: IBUPROFEN 200 MG TABLET PO PRN (11:34)
--- NOTE | 2016-10-29 11:35 | NUR ---
RN notes dangling at bedside; c/o throbbing headache 10 out of 10; requesting motrin; motrin 600mg po given; will monitor pain relief.
[2016-10-29 16:00] VITALS: BP 140/86
[2016-10-29] MEDS: ACETAMINOPHEN ES 500 MG TABLET PO PRN (18:41)
--- NOTE | 2016-10-29 18:45 | NUR ---
RN NOTES c/o FOUNTAIN 9 out of 10; tylenol 650mg po given; will inform PM nurse.
[2016-10-29 20:00] VITALS: BP 122/72
--- NOTE | 2016-10-29 20:00 | NUR ---
RN NOTES RECEIVED PX AWAKE, ALERT, AMBULATORY, ORIENTED X 3, NOT IN DISTRESS; DENIED PAIN, SOB, N/V; VERBALIZED SHE IS COMFORTABLE; CALL LIGHT WITHIN REACH.
[2016-10-29 20:05] VITALS: BP 122/72
--- NOTE | 2016-10-30 06:23 | NUR ---
RN NOTES NO EVENTS OVERNIGHT; PX ABLE TO SLEEP FOR 6 HOURS AND STILL SLEEPING; RESP EVEN AND UNLABORED, NOT IN DISTRESS; CALL LIGHT WITHIN REACH; WILL ENDORSE TO NEXT RN.
[2016-10-30 08:00] VITALS: BP 123/63
--- NOTE | 2016-10-30 08:00 | NUR ---
AM RN NOTES RECEIVED PT IN STABLE CONDITION, NO BEHAVIOR PROBLEMS NOTED, NO ANXIETY OR AGITATION, PROVIDED WITH BREAKFAST, WILL MONITOR PT.
[2016-10-30] MEDS: INVEST MED MK-8189 MISC 3 TAB EA PO SCH (09:33)
[2016-10-30] MEDS: INVEST MED MK-8189 MISC 3 CAP EA PO SCH (09:34)
--- NOTE | 2016-10-30 13:17 | NUR ---
PT ALERT AND ORIENTED NO ANXIETY RO AGITATION NOTED, STATED:" PLEASE CALL THAT I WANT TO GO HOME, I DO NOT WANT TO PARTICIPATE TO THIS TRIAL ANYMORE". COMFORT GIVEN AND PLACED CALL FOR
--- NOTE | 2016-10-30 13:20 | NUR ---
DR. SYKES CALLED AND CALL TRANSFERRED TO THE PT. WILL MONITOR.
--- NOTE | 2016-10-30 13:44 | NUR ---
NEW ORDER FROM DR. SYKES RECEIVED TO DISCHARGE PT HOME, NO HOME MEDS. PT INFORMED AND SHE IS HAPPY.
--- NOTE | 2016-10-30 15:16 | NUR ---
Pt discharged home in stable condition, no pain or discomfort noted, no sob or distress, no anxiety or agitation, happy to go home, instructions given, education done, all belongings taken and valuables from safe, taxi called and pt assisted by kishore, she left hospital safely.
[2016-11-02] MEDS ORDERED: LORAZEPAM 1 MG TABLET FOR AGITATION PO PRN (14:00)
[2016-11-02] MEDS ORDERED: LORAZEPAM 1 MG TABLET FOR INSOMNIA PO PRN (22:00)
[2016-11-09] MEDS ORDERED: LORAZEPAM 1 MG TABLET FOR AGITATION PO PRN (14:00)
[2016-11-09] MEDS ORDERED: LORAZEPAM 1 MG TABLET FOR INSOMNIA PO PRN (22:00)
== END 2016-10-30 15:10 | disposition home or self-care (01) | DRG 951 ==
LOC: MEDSG2 13:52
PROVIDERS: ADMIT Psychiatry & Neurology Psychiatry; ATTEND Psychiatry & Neurology Psychiatry
DX: Z00.6 Encounter for examination for normal comparison and control in clinical research program (principal); F20.0 Paranoid schizophrenia
CPT/HCPCS: 87081-TC; A6253; Z7610

== ENCOUNTER 2018-09-27 12:24 | Inpatient (IN) | payer OTHER ==
[~2018-09-27] VITALS: Ht 167.6 cm; Wt 93.0 kg
[2018-09-27 13:45] VITALS: BP 134/84
--- NOTE | 2018-09-27 13:45 | NUR ---
MS/RN - Admission (clinical trial) Admitted a 43 y/o female for clinical trial under the care of Dr. Tello with the diagnosis of Schizophrenia. Patient is alert and oriented, denies pain, stable on room air, no apparent distress seen. Skin is intact, refused photo to be taken. All belongings accounted and valuables sent to the safe. Patient oriented to room and use of call light. All needs attended. Admission orders noted and carried out. Plan of care discussed with patient and in agreement.
[2018-09-27] MEDS ORDERED: MAG HYDROX/AL HYDROX/SIMETH 30 ML UDC PO PRN (14:00)
[2018-09-27] MEDS ORDERED: LORAZEPAM 1 MG TABLET FOR AGITATION PO PRN (14:00)
[2018-09-27] MEDS ORDERED: MAGNESIUM HYDROXIDE 30 ML UDC PO PRN (14:00)
[2018-09-27] MEDS ORDERED: ZOLPIDEM TARTRATE 10 MG TABLET PO PRN (14:00)
--- NOTE | 2018-09-27 17:46 | NUR ---
MS/RN - End of shift summary No significant change in condition seen. Patient remain calm and cooperative with care, pleasant, denies pain, not in any form of distress. All needs attended. Will endorse to mold shifter for continuity of care.
--- NOTE | 2018-09-27 19:30 | NUR ---
RN NOTE; RECEIVED PT IN BED AWAKE AND ALERT. BREATHING EVENLY. NO BEHAVIORAL ISSUES NOTED, NO ANXIETY. NO HALLUCINATIONS. NEEDS ATTENDED. CALL LIGHT WITHIN REACH, WILL CONT TO MONITOR ,
[2018-09-27 20:00] VITALS: BP_SYST 122; BP_SYST 128; BP_DIAS 67; BP_DIAS 83
[2018-09-27] MEDS ORDERED: ARIPIPRAZOLE 5 MG TABLET ONE (21:58)
[2018-09-27] MEDS ORDERED: ABILIFY 5 MG PO ONE (22:00)
--- NOTE | 2018-09-28 | NUR ---
PT LAYING DOWN IN BED COMFORTABLY. WITH NO DISTRESS. WILL CONT TO MONITOR
--- NOTE | 2018-09-28 03:02 | NUR ---
ROUNDED. PT IN BED SLEEPING WELL W/ NAD.
--- NOTE | 2018-09-28 06:26 | NUR ---
PT SLEPT WELL THROUGH THE NIGHT WITH NO ACUTE EVENT. NO BEHAVIORAL ISSUES. COMPLIANT. NO REPORT OF HALLUCINATIONS. WILL CONT TO MONITOR AND WILL ENDORSES TO AM SHIFT FOR ANG,
--- NOTE | 2018-09-28 07:25 | NUR ---
MS RN OPENING NOTE RECEIVED PT IN BED, RESTING WITH EYES CLOSED AND EASILY AROUSABLE. PT IS A/OX4, DENIES CHEST PAIN, SOB, N/V. BREATHING IS EVEN AND UNLABORED ON ROOM AIR. PT DOES NOT HAVE IV ACCESS AT THIS TIME PER PROTOCOL WITH CLINICAL TRIAL FOR DR. SYKES. ALL NEEDS ATTENDED TO. BED IS LOCKED AND IN LOWEST POSITION, SIDE RAILS UP X2, CALL LIGHT AND POSSESSION WITHIN REACH.
[2018-09-28 08:00] VITALS: BP 160/97
[2018-09-28] MEDS: ACETAMINOPHEN ES 500 MG TABLET PO PRN ×3 (08:02→23:36)
[2018-09-28] MEDS: IBUPROFEN 200 MG TABLET PO PRN ×2 (09:54→18:15)
[2018-09-28 16:00] VITALS: BP 135/75
--- NOTE | 2018-09-28 18:07 | NUR ---
MS RN CLOSING NOTE PT IN BED, RESTING WITH EYES CLOSED AND EASILY AROUSABLE. PT IS A/OX4, DENIES CHEST PAIN, SOB, N/V. BREATHING IS EVEN AND UNLABORED ON ROOM AIR. PT DOES NOT HAVE IV ACCESS AT THIS TIME PER PROTOCOL WITH CLINICAL TRIAL FOR DR. SYKES. ADLS PROVIDED. ALL NEEDS ATTENDED TO. BED IS LOCKED AND IN LOWEST POSITION, SIDE RAILS UP X2, CALL LIGHT AND POSSESSION WITHIN REACH. WILL ENDORSE TO INSURANCE SALESMAN NURSE FOR CONTINUITY OF CARE.
[2018-09-28 20:00] VITALS: BP 148/88
[2018-09-28 20:19] VITALS: BP 148/88
--- NOTE | 2018-09-28 20:38 | NUR ---
RN NOTE; RECEIVED PT IN BED AWAKE AND ALERT. BREATHING EVENLY. NO BEHAVIORAL ISSUES NOTED, NO ANXIETY. NO HALLUCINATIONS. ABD CRAMP TOLERATED WELL WITH NO C/O PAIN AT THIS TIME. NEEDS ATTENDED. CALL LIGHT WITHIN REACH, WILL CONT TO MONITOR ,
[2018-09-28] MEDS ORDERED: ABILIFY 5 MG PO ONE (22:00)
--- NOTE | 2018-09-28 23:36 | NUR ---
TYLENOL ES 1000MG GIVEN ORDERED PER PT'S REQUEST FOR C/O LOWER ABD CRAMP. WILL CONT TO MONITOR,
--- NOTE | 2018-09-29 06:18 | NUR ---
PT IN BED SLEEPING . BREATHING EVENLY. HAD A GOOD NIGHT SLEEP. NO ACUTE EVENT. NO BEHAVIORAL ISSUES NOTES. NO ANXIETY EPISODE. NO HALLUCINATIONS. NEEDS MET. CALL LIGHT WITHIN REACH,. WILL CONT TO MONITOR AND WILL ENDORSE TO AM SHIFT FOR ANG.
--- NOTE | 2018-09-29 08:00 | NUR ---
m/s pharmacist intern: initial assessment received pt in bed awake, a/ox4. ambulatory. no c/o pain or any discomfort. instructed to call for assistance. will continue to monitor.
[2018-09-29 08:13] VITALS: BP 149/94
[2018-09-29] MEDS: ACETAMINOPHEN ES 500 MG TABLET PO PRN ×2 (08:56→21:52)
--- NOTE | 2018-09-29 10:00 | NUR ---
M/S ANESTHESIA DIRECTOR: NOTES RESTING COMFORTABLE IN BED. NO DISTRESS NOTED. CALL LIGHT WITHIN REACH.
[2018-09-29] MEDS: IBUPROFEN 200 MG TABLET PO PRN (11:41)
--- NOTE | 2018-09-29 14:00 | NUR ---
M/S SERVER MANAGER: NOTES RESTING COMFORTABLE IN BED WITH EYES CLOSE. NO DISTRESS NOTED. WILL MONITOR.
[2018-09-29 16:00] VITALS: BP 145/90
--- NOTE | 2018-09-29 17:10 | NUR ---
m/s head men's tennis coach: notes dr. montgomery in with verbal order to change abilify to 20mg po qhs. order read back and carried out and acknowledged.
--- NOTE | 2018-09-29 18:25 | NUR ---
m/s seating captain: notes lab called re: glucose fasting [id number]. dr. montgomery notified and made aware, stated, "i order it wrong, it's for tomorrow on both." orders read back and carried out and acknowledged. also dr. montgomery wants pharmacy to provide the abilify. pharmacy notified, spoke to [facility] and informed that they need to provide the abilify per md.
--- NOTE | 2018-09-29 18:55 | NUR ---
m/s insulation applicator: notes in bed awake, watching tv at this time. instructed to call for assistance. needs attended. will continue to monitor.
--- NOTE | 2018-09-29 19:30 | NUR ---
MS RN INITIAL NOTES Patient is awake, sitting up in bed. Appears calm, denies pain. On clinical trial. Call light within reach, safety measure explained, verbalized understanding. Will cont to monitor.
[2018-09-29 20:06] VITALS: BP 132/79
[2018-09-29 20:43] VITALS: BP 132/79
[2018-09-29] MEDS: ARIPIPRAZOLE 5 MG TABLET PO SCH (21:24)
[2018-09-29] MEDS ORDERED: ABILIFY 5 MG PO SCH (22:00)
[2018-09-30] MEDS: IBUPROFEN 200 MG TABLET PO PRN (06:14)
--- NOTE | 2018-09-30 06:23 | NUR ---
CLOSING NOTES Patient in bed, awake. Stable oxygen saturation on RA. On Clinical Trials, appears calm. Ambulates independently, back/abdomen pain managed with PRN Tylenol with relief. No BM this shift. Slept well, possible discharge Tuesday. Maintained safety, will endorse to oncoming RN.
--- NOTE | 2018-09-30 07:45 | NUR ---
MS/RN Patient received Patient received from shift boss. A/O X3, vital signs within normal range, denies any pain or discomfort. All needs attended, call light within reach, will continue to monitor and ensure safety.
[2018-09-30 08:00] VITALS: BP 134/82
--- NOTE | 2018-09-30 14:31 | NUR ---
MS/RN Rounds Patient sleeping soundly at this time. No behavior outbursts or concerns, will continue to monitor.
[2018-09-30 16:00] VITALS: BP 134/84
[2018-09-30] MEDS: ACETAMINOPHEN ES 500 MG TABLET PO PRN (16:10)
[2018-09-30 16:22] VITALS: BP 134/84
--- NOTE | 2018-09-30 16:24 | NUR ---
MS/RN Pain Complaining of lower abdominal pain due to being on menstrual cycle and requesting tylenol. 1000mg tylenol ES administered as ordered.
--- NOTE | 2018-09-30 18:02 | NUR ---
MS/RN End note Patient remains in stable condition, all needs attended, will endorse to education and development manager.
[2018-09-30 20:00] VITALS: BP 140/89
--- NOTE | 2018-09-30 20:14 | NUR ---
MS/RN RECEIVE PATIENT AW AWAKE, ALERT, ORIENTED, COMFORTABLE, NO C/O PAIN, NO DISTRESS NOTED, CALL LIGHT IN REACH. WILL MONITOR.
[2018-09-30] MEDS: ARIPIPRAZOLE 5 MG TABLET PO SCH (21:18)
--- NOTE | 2018-09-30 23:53 | NUR ---
MS/RN PATIENT IS SLEEPING AT THIS TIME, AROUSABLE, APPEAR COMFORTABLE, NO SIGNS OF DISTRESS NOTED, CALL LIGHT IN REACH. WILL CONTINUE TO MONITOR.
--- NOTE | 2018-10-01 02:16 | NUR ---
MS/RN PATIENT IS SLEEPING, ENDORSED TO NEXT RN FOR CONTINUITY OF CARE,.
--- NOTE | 2018-10-01 02:17 | NUR ---
RN NOTES RECEIVED REPORT FROM PREVIOUS NURSE, PATIENT IS ASLEEP AT THIS TIME, NO SIGNS OF ACUTE DISTRESS NOTED, AROUSABLE, WILL CONTINUE TO MONITOR.
--- NOTE | 2018-10-01 07:26 | NUR ---
RN NOTES ALL NEEDS ATTENDED AND MET, SLEPT THE REST OF THE SHIFT. ENDORSED TO AM NURSE FOR CONTINUITY OF CARE.
--- NOTE | 2018-10-01 07:45 | NUR ---
MS RN OPENING NOTES RECEIVED PT LAYING IN BED WITH HOB SLIGHTLY ELEVATED. PT IS A/OX4, AFEBRILE. RESPIRATIONS ARE EVEN AND UNLABORED, NOT IN ANY ACUTE DISTRESS NOTED. PT DENIES ANY PAIN, SOB, N/V. NO IV ACCESS. SAFETY MEASURES ARE IN PLACE. INSTRUCTED PT TO USE CALL LIGHT WHEN ASSISTANCE IS NEEDED, CALL LIGHT IS LEFT WITHIN REACH. WILL MONITOR THROUGHOUT SHIFT FOR CONTINUITY OF CARE.
[2018-10-01] MEDS: IBUPROFEN 200 MG TABLET PO PRN (07:51)
[2018-10-01 08:00] VITALS: BP 135/97
[2018-10-01] MEDS: ACETAMINOPHEN ES 500 MG TABLET PO PRN (12:44)
--- NOTE | 2018-10-01 13:31 | NUR ---
MS RN NOTES-- PT IS NOT IN ANY APPARENT DISTRESS. ABLE TO MAKE NEEDS KNOWN. NEEDS RENDERED. REMINDED PT TO USE CALL LIGHT WHEN ASSISTANCE IS NEEDED, CALL LIGHT IS LEFT WITHIN REACH.
[2018-10-01 16:00] VITALS: BP 141/87
--- NOTE | 2018-10-01 18:20 | NUR ---
MS RN CLOSING NOTES ALL DUE MEDS GIVEN, NEEDS MET AND RENDERED. PT REMAINS A/OX4, AFEBRILE. RESPIRATIONS ARE EVEN AND UNLABORED, NOT IN ANY ACUTE DISTRESS NOTED. PT DENIES ANY PAIN AT THIS TIME, NO C/O SOB, N/V. NO IV ACCESS. SAFETY MEASURES ARE IN PLACE. REMINDED PT TO USE CALL LIGHT WHEN ASSISTANCE IS NEEDED, CALL LIGHT IS LEFT WITHIN REACH. WILL ENDORSE TO NEXT SHIFT FOR CONTINUITY OF CARE.
--- NOTE | 2018-10-01 19:05 | NUR ---
MS RN OPENING NOTES Received patient sitting up in bed, watching TV. Alert, oriented x 4. Breathing even and unlabored. Not in any distress. No complaints of pain or any discomfort as of this time. No IV access. Safety measures in place. Call light within easy reach. Bed in low, locked position. Will continue to monitor accordingly.
[2018-10-01 20:00] VITALS: BP 131/89
[2018-10-01] MEDS: ARIPIPRAZOLE 5 MG TABLET PO SCH (21:19)
--- NOTE | 2018-10-02 01:50 | NUR ---
MS RN NOTES Patient sleeping soundly at this time. No behavior outbursts or concerns. Will continue to monitor.
--- NOTE | 2018-10-02 06:33 | NUR ---
MS RN CLOSING NOTES Patient remains in stable condition. Slept well. All needs attended to. Safety measures in place. Will endorse continuity of care to oncoming RN.
[2018-10-02 08:00] VITALS: BP 132/86
[2018-10-02 08:34] VITALS: BP 132/86
--- NOTE | 2018-10-02 09:07 | NUR ---
MS RN NOTES-- RECEIVED A CALL FROM DR. SYKES AND RELAYED FASTING BLOOD GLUCOSE AND HGBA1C LEVEL. PER DR. SYKES, D/C TOMORROW.
[2018-10-02] MEDS: ACETAMINOPHEN ES 500 MG TABLET PO PRN (09:21)
[2018-10-02] MEDS: IBUPROFEN 200 MG TABLET PO PRN (12:33)
--- NOTE | 2018-10-02 13:38 | NUR ---
MS RN NOTES-- PT IS NOT IN ANY APPARENT DISTRESS. ABLE TO MAKE NEEDS KNOWN. NEEDS RENDERED.
[2018-10-02 16:04] VITALS: BP 147/85
--- NOTE | 2018-10-02 17:45 | NUR ---
MS RN NOTES-- PT SEEN AND EXAMINED BY DR. SYKES.
--- NOTE | 2018-10-02 19:20 | NUR ---
MS RN NOTE RECEIVED PT IN STABLE CONDITION. A&O X4, ABLE TO MAKE NEEDS KNOWN. NO SIGNS OF SOB OR DISTRESS. NO C/O PAIN. PT HAS NO IV ACCESS. ALL CURRENT NEEDS MET. SAFETY PRECAUTIONS IN PLACE: BED LOW, LOCKED, UPPER RAILS UP, AND CALL LIGHT WITHIN REACH. WILL CONT. TO MONITOR.
[2018-10-02 20:00] VITALS: BP 147/87
[2018-10-02] MEDS: ARIPIPRAZOLE 5 MG TABLET PO SCH (21:10)
--- NOTE | 2018-10-03 06:48 | NUR ---
MS RN NOTE PT IN STABLE CONDITION. A&O X4, ABLE TO MAKE NEEDS KNOWN. NO SIGNS OF SOB OR DISTRESS. NO C/O PAIN. PT HAS NO IV ACCESS. ALL CURRENT NEEDS MET. SAFETY PRECAUTIONS IN PLACE: BED LOW, LOCKED, UPPER RAILS UP, AND CALL LIGHT WITHIN REACH. WILL CONT. TO MONITOR AND ENDORSE TO NEXT SHIFT FOR ANG.
--- NOTE | 2018-10-03 07:53 | NUR ---
MS RN OPENING NOTE RECEIVED PATIENT IN BED. SLEEPING, EASILY AROUSED WITH VERBAL STIMULI, ORIENTED X 4. ON ROOM AIR, TOLERATING WELL. IN NO APPARENT DISTRESS OR DISCOMFORT AT THIS TIME. RESPIRATIONS EVEN AND UNLABORED. DENIES PAIN OR SOB. PATIENT IS ABLE TO COMMUNICATE NEEDS. NO IV ACCESS PER MD ORDER. PATIENT KEPT CLEAN AND COMFORTABLE. ALL NEEDS ATTENDED, SAFETY MEASURES IN PLACE, BED IN LOW LOCKED POSITION. SIDE RAILS UP X2, CALL LIGHT WITHIN EASY REACH. WILL CONTINUE TO MONITOR.
[2018-10-03 08:00] VITALS: BP 139/88
--- NOTE | 2018-10-03 09:35 | NUR ---
RECEIVED TELEPHONE ORDER FROM DR. SYKES TO DISCHARGE PATIENT HOME WITH FOLLOW UP IN HIS OFFICE UPON DISCHARGE. NOTED AND CARRIED OUT.
[2018-10-03] MEDS: ACETAMINOPHEN ES 500 MG TABLET PO PRN (10:44)
--- NOTE | 2018-10-03 13:48 | NUR ---
MS SMALL CRAFT OPERATOR NOTE RECEIVED ORDER FROM THE [facility] TO DISCHARGE PATIENT HOME, PATIENT IS STABLE VITAL SIGNS STABLE. ALERT ORIENTED X4. ON ROOM AIR, TOLERATING WELL. IN NO APPARENT DISTRESS OR DISCOMFORT AT THIS TIME. RESPIRATIONS EVEN AND UNLABORED. DENIES PAIN AND SOB. DISCHARGE PREPARED VIA EXITC[employer]. EDUCATION PROVIDED REGARDING DISEASE PROCESS, FOLLOW UP CARE, DIET, MEDICATIONS. PATIENT WAS ENCOURAGED TO FOLLOW UP WITH HER PRIMARY CARE PHYSICIAN WITHIN 1-2 WEEKS UPON DISCHARGE. PATIENT STATED SHE IS GOING TO SEE HER DOCTOR WHEN SHE GOES HOME. PATIENT'S BELONGINGS CHECKED AND ACCOUNTED FOR. ALL VALUABLES REMOVED FROM THE SAFE AND RETURNED BACK TO THE PATIENT. PATIENT'S HOME MEDICATIONS OBTAINED FROM THE PHARMACY AND RETURNED TO THE PATIENT. ALL PAPERWORK SIGNED, COPIES MADE, PLACED IN CHART. PATIENT REFUSED FLU VACCINE AT THIS TIME. SKIN ASSESSMENT REVEALED NO IMPAIRMENT. PATIENT HAS NO IV ACCESS, ID BAND REMOVED. PATIENT LEFT THE UNIT AMBULATING INDEPENDENTLY, ACCOMPANIED BY ZONIA PAULINO AT [id number].
[2018-10-04] MEDS ORDERED: LORAZEPAM 1 MG TABLET FOR AGITATION PO PRN (12:00)
[2018-10-04] MEDS ORDERED: INVESTIGATIONAL MED RGH-MD-24 1 CAP PO SCH (17:00)
== END 2018-10-03 13:15 | disposition home or self-care (01) | DRG 951 ==
LOC: MED 13:12
PROVIDERS: ADMIT Psychiatry & Neurology Psychiatry; ATTEND Psychiatry & Neurology Psychiatry
DX: Z00.6 Encounter for examination for normal comparison and control in clinical research program (principal); E11.65 Type 2 diabetes mellitus with hyperglycemia; F20.0 Paranoid schizophrenia; Z91.5 Personal history of self-harm; Z79.899 Other long term (current) drug therapy; Z81.8 Family history of other mental and behavioral disorders
CPT/HCPCS: 36415; 82947-TC; 87081-TC; G0378

== ENCOUNTER 2023-01-17 14:20 | Inpatient (IN) | payer OTHER ==
[~2023-01-17] VITALS: Ht 157.5 cm; Wt 72.6 kg
--- NOTE | 2023-01-17 14:30 | NUR ---
RN- ADMITTING NOTES PATIENT IS A 47 YEAR OLD FEMALE ADMITTED FROM DR. SYKES'S OFFICE FOR A CLINICAL TRIAL. UPON FACE TO FACE ASSESSMENT, PATIENT IS ALERT AND ORIENTED X4, CALM, COOPERATIVE, WELL GROOMED, CLEAR SPEECH, AND DENIES SUICIDAL/HOMICIDAL IDEATION AND AUDITORY/VISUAL HALLUCINATIONS AT THIS TIME. VITAL SIGNS TAKEN: B/P 136/72, P 98, R 20, T 97.9, AND O2 SAT 98% ON ROOM AIR. SKIN INTACT. CONTACTED DR. SYKES AND INFORMED OF ADMISSION WITH ADMITTING ORDERS PLACED. PATIENT HANDBOOK GIVEN WITH PATIENT'S RIGHTS AND GUIDE TO PRESCRIPTIONS. WILL CONTINUE TO MONITOR Q 15 MINUTES FOR SAFETY AND BEHAVIOR PER GPS PROTOCOL.
[2023-01-17] MEDS ORDERED: ZOLPIDEM TARTRATE 10 MG TABLET PO PRN (15:00)
[2023-01-17] MEDS ORDERED: MAG HYDROX/AL HYDROX/SIMETH 30 ML UDC PO PRN ×2 (15:00)
[2023-01-17] MEDS ORDERED: BLOOD SUGAR DIAGNOSTIC 1 EACH STRIP IN ONE (15:00)
[2023-01-17] MEDS ORDERED: ACETAMINOPHEN 325 MG TABLET PO PRN (15:00)
[2023-01-17] MEDS ORDERED: MAGNESIUM HYDROXIDE 30 ML UDC PO PRN ×2 (15:00)
[2023-01-17] MEDS ORDERED: LORAZEPAM 1 MG TABLET FOR AGITATION PO PRN (15:00)
[2023-01-17] MEDS ORDERED: ACETAMINOPHEN ES 500 MG TABLET PO PRN (15:00)
[2023-01-17] MEDS ORDERED: IBUPROFEN 200 MG TABLET PO PRN (15:00)
[2023-01-17 16:00] VITALS: BP 136/72; TEMP 97.9; O2SAT 98
--- NOTE | 2023-01-17 18:33 | NUR ---
RN- CLOSING NOTES PATIENT AWAKE, WATCHING TV IN THE DINING ROOM, BREATHING EVEN AND NON LABORED WITH NO S/S OF DISTRESS. PATIENT IS COOPERATIVE, CALM, AND WITHOUT DISTRESS. MEDICATION RECONCILIATION COMPLETED. DENIES SI/HI AT THIS TIME. WILL CONTINUE TO MONITOR Q 15 MINUTES FOR SAFETY AND BEHAVIOR.
[2023-01-17] MEDS ORDERED: ARIP20TA4 PO (18:48)
[2023-01-17 20:30] VITALS: BP 122/79; TEMP 97.6; O2SAT 95
[2023-01-18 07:27] LABS: ALBUMIN 3.4 g/dL (3.4-5.0); BILIRUBIN,TOTAL 0.4 mg/dL (0.2-1.0); CALCIUM, SERUM 8.8 mg/dL (8.5-10.1); POTASSIUM 3.8 mmol/L (3.5-5.1); TOTAL PROTEIN, SERUM 6.9 g/dL (6.4-8.2)
[2023-01-18 08:00] VITALS: BP 124/90; TEMP 97.7; O2SAT 100
[2023-01-18 09:46] LABS: CHOLESTEROL 135 mg/dL (<200); HDL CHOLESTEROL 37 mg/dL (40-60); LDL 82 mg/dL (0-99); TRIGLYCERIDES 60 mg/dL (30-150)
[2023-01-18 15:14] LABS: CREATININE 1.1 mg/dL (0.6-1.3)
[2023-01-18 16:00] VITALS: BP 144/90; TEMP 98.7; O2SAT 99
--- NOTE | 2023-01-18 19:30 | NUR ---
GPS RN NOTES RECEIVED PATIENT IN BED AWAKE, ALERT AND ORIENTED X3. NO S/SX OF ACUTE DISTRESS NOTED. PATIENT IS CALM, PLEASANT, COOPERATIVE TO CARE. DENIES SUICIDAL AND HOMICIDAL IDEATIONS. SAFETY PRECAUTIONS MAINTAINED. WILL CONTINUE TO MONITOR Q15MIN ROUNDS FOR SAFETY AND BEHAVIOR.
[2023-01-18 20:00] VITALS: BP 109/73; TEMP 98; O2SAT 98
[2023-01-19 08:00] VITALS: BP 125/79; TEMP 97.9; O2SAT 98
[2023-01-19 16:00] VITALS: BP 125/79; TEMP 97.9; O2SAT 100
[2023-01-19 20:00] VITALS: BP 114/76; TEMP 98.3; O2SAT 99
[2023-01-20 08:00] VITALS: BP 139/93; TEMP 98; O2SAT 100
--- NOTE | 2023-01-20 10:00 | NUR ---
RN Notes: Received pt. awake in the dining room, interacting with oeer and pleasant upon approached. Ate 100% for breakfast. Pt. is visible in the nit and interacts with selected peers. Encouraged to verbalize feelings and motivated to attend group activity. Needs attended and will continue to monitor for safety.
[2023-01-20 16:00] VITALS: BP 140/73; TEMP 98; O2SAT 98
--- NOTE | 2023-01-20 19:30 | NUR ---
GPS RN NOTE, RECEIVED PATIENT AWAKE AND IN BED, NO S/S OR COMPLAINTS OF PAIN AT THIS TIME. PATIENT IS DISPLAYING NO S/S OF APPARENT DISTRESS AT THIS TIME. PATIENT BREATHING IS UNLABORED WITH EQUAL RISE AND FALL OF THE CHEST. PATIENT IS ALERT AND ORIENTED X 3 ON ROOM AIR WITH A SPO2 99%. PATIENT IS COMPLAINT WITH MEDICATIONS, ISOLATIVE, MAKES NEEDS KNOWN, MOTIVATED TO SELF CARE, AND COOPERATIVE. PATIENT DENIES SUICIDAL AND HOMICIDAL IDEATIONS AT THIS TIME. PATIENT ASSISTED WITH TURNING AND REPOSITIONING Q2HR AND PRN FOR COMFORT AND CIRCULATION. PATIENT HAS NO NEEDS AT THIS TIME. PATIENT EDUCATED ON THE USE OF THE CALL BRYAN. PATIENT BED SIDE RAILS UP X 2 FOR SAFETY. PATIENT BED IS LOCKED, LOW, WITH BED ALARM ON. WILL CONTINUE TO MONITOR THIS PATIENT Q15 MINUTES WITH THE HELP OF STAFF TO MAINTAIN SAFETY.
[2023-01-20 20:00] VITALS: BP 142/90; TEMP 98.3; O2SAT 99
[2023-01-21 08:00] VITALS: BP 126/76; TEMP 97.9; O2SAT 99
[2023-01-21 16:00] VITALS: BP 129/80; TEMP 97.7; O2SAT 100
[2023-01-21 20:00] VITALS: BP 141/92; TEMP 98.5; O2SAT 98
--- NOTE | 2023-01-21 20:30 | NUR ---
noc rn note- continuity of care patient came up, ambulatory. a/ox4. no s/s of apparent distress in room air, breathing even and unlabored. GPS transfer, patient oriented in the unit. Encouraged to verbalized needs and concerns. will continue to monitor.
--- NOTE | 2023-01-21 21:20 | NUR ---
[facility] LAMONTE NOTE PT TRANSFERRED TO 3 W ROOM 315-1. PT IN NO STRESS OR DISCOMFORT. ALL THE BELONGINGS GIVEN TO THE PT. PT AMBULATED TO THE [address] RD FLOOR WITH LEAD INSPECTOR AT HER SIDE. REPORT GIVEN TO AGGIE ABURTO OF . Addendum: 01/22/23 at 0312 by MICHAEL GALLARDO RN PT IS DISCHARGED FROM [facility].
--- NOTE | 2023-01-22 06:57 | NUR ---
noc rn closing note patient did not exhibit any s/s of behavioral changes. denies any paranoia at this time. will endorse to morning shift rn for continuity of care.
[2023-01-22 07:00] VITALS: BP 130/84; TEMP 98.1; O2SAT 100
--- NOTE | 2023-01-22 07:20 | NUR ---
MS RN OPENING NOTE Received patient in bed, awake, calm. A/O x 4, able to make needs known. No c/o pain/discomfort at this time. No IV access noted. On room air, tolerating well. Safety measures maintained: bed in lowest locked position, side rails up x2, call light and tray table within easy reach. Will continue to monitor.
--- NOTE | 2023-01-22 19:25 | NUR ---
MS RN CLOSING NOTE Patient resting in bed, calm and cooperative. A/O x 4, able to make needs known. No c/o pain/discomfort at this time. No IV access noted. On room air, tolerating well. Safety measures maintained: bed in lowest locked position, side rails up x2, call light and tray table within easy reach. Will endorse loki to rail transportation tabeler.
--- NOTE | 2023-01-22 19:44 | NUR ---
MS RN OPENING NOTES: RECEIVED PATIENT AWAKE IN BED, BED IN LOW POSITION CALL LIGHTS WITHIN REACH, NO COMPLAIN OF PAIN AND DISCOMFORT AT THIS TIME, ON ROOM AIR SATURATING WELL, PATIENT IS A/O X4 AMBULATORY ABLE TO MAKE NEEDS KNOWN, ON CLINICAL TRIAL NO CHANGES IN BEHAVIOR WAS OBSERVED, KEPT CLEAN AND DRY ALL NEEDS MET WILL CONTINUE TO MONITOR
[2023-01-22 20:00] VITALS: BP_SYST 120; BP_SYST 99; BP_DIAS 59; BP_DIAS 71; TEMP 97.7; TEMP 98.8; O2SAT 100; O2SAT 99
[2023-01-23 07:00] VITALS: BP 112/80; TEMP 97.6; O2SAT 100
--- NOTE | 2023-01-23 07:48 | NUR ---
MS RN CLOSING NOTES: RECEIVED PATIENT SLEEP IN BED COMFORTABLY, AROUSABLE TO VERBAL STIMULI, BED IN LOW POSITION CALL LIGHTS WITHIN REACH, NO COMPLAIN OF PAIN AND DISCOMFORT AT THIS TIME, ON ROOM AIR SATURATING WELL, PATIENT IS A/O X4 AMBULATORY ABLE TO MAKE NEEDS KNOWN, ON CLINICAL TRIAL NO CHANGES IN BEHAVIOR WAS OBSERVED, PATIENT KEPT CLEAN AND DRY ALL NEEDS MET ENDORSE TO INCOMING SHIFT.
--- NOTE | 2023-01-23 08:06 | NUR ---
MS RN OPENING NOTE Patient in bed, awake. A/O x 4, able to make needs known. On room air breathing evenly and unlabored, no SOB or s/s of distress noted. No IV access due to clinical trial status. Denies any pain or discomfort at this time. Safety precautions in place: bed in low, locked position; siderails up x 2; call light within reach. Will continue to monitor.
[2023-01-23 16:00] VITALS: BP 114/77; TEMP 98.8; O2SAT 98
--- NOTE | 2023-01-23 19:26 | NUR ---
MS RN CLOSING NOTE Patient in bed, resting. A/O x 4, able to make needs known. On room air breathing evenly and unlabored, no SOB or s/s of distress noted. No IV access due to clinical trial status. Denies any pain or discomfort at this time. All needs attended to. Safety precautions in place: bed in low, locked position; siderails up x 2; call light within reach. Will endorse to cloth napping supervisor nurse for ANG.
[2023-01-23 20:00] VITALS: BP 120/71; TEMP 97.5; O2SAT 97
--- NOTE | 2023-01-23 20:26 | NUR ---
MS RN OPENING NOTES: RECEIVED PATIENT AWAKE IN BED, BED IN LOW POSITION CALL LIGHTS WITHIN REACH, NO COMPLAIN OF PAIN AND DISCOMFORT AT THIS TIME, ON ROOM AIR SATURATING WELL, PATIENT IS A/OX4 AMBULATORRY ABLE TO MAKE NEED KNOWN, ON CLINICAL TRIAL, ALL NEED MET WILL CONTINUE TO MONITOR.
--- NOTE | 2023-01-24 06:19 | NUR ---
MS RN CLOSING NOTES PATIENT SLEEP IN BED COMFORTABLY AROUSABLE TO VERBAL STIMULI, BED IN LOW POSITION CALL LIGHTS WITHIN REACH, NO COMPLAIN OF PAIN AND DISCOMFORT AT THIS TIME ,ON ROOM AIR SATURATING WELL, PATIENT IS A/O X4 ABLE TO MAKE NEEDS KNOWN ON CLINICAL TRIAL,NO CHANGES IN BEHAVIOR WAS OBSERVED, PATIENT KEPT CLEAN AND DRY ALL NEEDS MET ENDORSE TO INCOMING SHIFT.
--- NOTE | 2023-01-24 07:20 | NUR ---
MS ABURTO CLOSING NOTES RECIVED PATIENT AWAKE IN BED COMFORTABLY AROUSABLE TO VERBAL STIMULI, A/OX4. BED IN LOW POSITION CALL LIGHTS WITHIN REACH, NO COMPLAIN OF PAIN AND DISCOMFORT AT THIS TIME ,ON ROOM AIR SATURATING WELL. CLINICAL TRIAL. NO C/O AT THIS TIME. WILL CONTINUE TO MONITOR. Addendum: 01/24/23 at 1030 by CARINE RENDON RN LAMONTE OPENING NOTE
[2023-01-24 07:30] VITALS: BP 117/72; TEMP 98.5; O2SAT 98
[2023-01-24 16:00] VITALS: BP 112/78; TEMP 98.4; O2SAT 96
--- NOTE | 2023-01-24 19:35 | NUR ---
MS RN OPENING NOTES: RECEIVED PATIENT AWAKE IN BED , BE DIN LOW POSITION CALL LIGHTS WITHIN REACH, NO COMPLAIN OF PAIN AND DISCOMFORT AT THIS TIME, ON ROOM VERONICA SATURATING WELL, PATIENT IS A/O X4 AMBULATORY ABLE TO MAKE NEEDS KNOWN, ON CLINICAL TRIAL, WILL CONTINUE TO MONITOR.
[2023-01-25 02:36] VITALS: BP 110/75; TEMP 97.9; O2SAT 97
--- NOTE | 2023-01-25 06:34 | NUR ---
MS RN CLOSING NOTES: RECEIVED PATIENT SLEEP IN BED COMFORTABLY, AROUSABLE TO VERBAL STIMULI, BED IN LOW POSITION CALL LIGHTS WITHIN REACH, NO COMPLAIN OF PAIN AND DISCOMFORT AT THIS TIME, ON ROOM AIR SATURATING WELL PATIENT IS A/O 4 AMBULATORY ABLE TO MAKE NEEDS KNOWN, ON CLINICAL TRIAL, NO CHANGES IN BEHAVIOR WAS OBSERVED, PATIENT KEPT CLEAN AND DRY ALL NEEDS MET ENDORSE TO INCOMING SHIFT.
--- NOTE | 2023-01-25 07:15 | NUR ---
RN OPENING NOTES RECEIVED PATIENT AWAKE IN BED COMFORTABLY AROUSABLE TO VERBAL STIMULI, A/OX4. BED IN LOW POSITION CALL LIGHTS WITHIN REACH, NO COMPLAIN OF PAIN AND DISCOMFORT AT THIS TIME ,ON ROOM AIR SATURATING WELL. CLINICAL TRIAL. NO C/O AT THIS TIME. WILL CONTINUE TO MONITOR.
[2023-01-25 08:30] VITALS: BP 106/67; TEMP 98; O2SAT 99
[2023-01-25 16:00] VITALS: BP 103/71; TEMP 98; O2SAT 99
--- NOTE | 2023-01-25 18:39 | NUR ---
RN CLOSING NOTES PATIENT AWAKE IN BED COMFORTABLY AROUSABLE TO VERBAL STIMULI, A/OX4. BED IN LOW POSITION CALL LIGHTS WITHIN REACH, NO COMPLAIN OF PAIN AND DISCOMFORT AT THIS TIME ,ON ROOM AIR SATURATING WELL. CLINICAL TRIAL. NO C/O AT THIS TIME. WILL ENDORSE TO NOC SHIFT FOR ANG.
--- NOTE | 2023-01-25 20:00 | NUR ---
CLINICAL TRIAL NOTES Received report from am nurse and seen patient in bed, awake, calm. A/O x 4, watching Tv at this time. able to make needs known. No c/o pain/discomfort at this time. No IV access noted. On room air, tolerating well. Safety measures maintained: bed in lowest locked position, side rails up x2, call light and tray table within easy reach. Will continue to monitor.
--- NOTE | 2023-01-26 13:22 | NUR ---
RN NOTE WITNESSED LAMONTE CRUZ RETURN BELONGINGS FROM [facility], ALL BELONGINGS RETURNED TO PATIENT.
--- NOTE | 2023-01-26 13:30 | NUR ---
DISCHARGE NOTE PATIENT DISCHARGE IN STABLE MEDICAL CONDITION.A/O X4. VITAL SIGNS TAKEN, STABLE AND RECORDED. NO IV ACCESS. NAME ARM BAND REMOVED. SKIN INTACT. ALL BELONGINGS CHECKED AND BELONGINGS LIST SIGNED. RETURNED BELONGINGS KEPT FROM [facility] WITNESSED BY LAMONTE ASHLEY. HEALTH TEACHING AND DISCHARGE INSTRUCTIONS GIVEN AND VERBALIZED UNDERSTANDING. INSTRUCTED PATIENT IN CASE OF EMERGENCY TO CALL 911 OR GO TO THE NEAREST ER. PATIENT LEFT AMBULATING WITH NO SIGNS OF DISTRESS, ACCOMPANIED BY RN TO THE LOBBY. CHARGE NURSE AWARE OF DISCHARGED.
[2023-01-31] MEDS ORDERED: ZOLPIDEM TARTRATE 10 MG TABLET PO PRN (13:00)
[2023-01-31] MEDS ORDERED: LORAZEPAM 1 MG TABLET FOR AGITATION PO PRN (13:00)
[2023-02-01] MEDS ORDERED: INVEST MED CVL-231-2002 PO SCH (10:00)
[2023-02-07] MEDS ORDERED: ZOLPIDEM TARTRATE 10 MG TABLET PO PRN (13:00)
[2023-02-07] MEDS ORDERED: LORAZEPAM 1 MG TABLET FOR AGITATION PO PRN (13:00)
[2023-02-14] MEDS ORDERED: LORAZEPAM 1 MG TABLET FOR AGITATION PO PRN (13:00)
[2023-02-14] MEDS ORDERED: ZOLPIDEM TARTRATE 10 MG TABLET PO PRN (13:00)
[2023-02-21] MEDS ORDERED: LORAZEPAM 1 MG TABLET FOR AGITATION PO PRN (13:00)
[2023-02-21] MEDS ORDERED: ZOLPIDEM TARTRATE 10 MG TABLET PO PRN (13:00)
[2023-02-28] MEDS ORDERED: ZOLPIDEM TARTRATE 10 MG TABLET PO PRN (13:00)
[2023-02-28] MEDS ORDERED: LORAZEPAM 1 MG TABLET FOR AGITATION PO PRN (13:00)
[2023-03-07] MEDS ORDERED: LORAZEPAM 1 MG TABLET FOR AGITATION PO PRN (13:00)
[2023-03-07] MEDS ORDERED: ZOLPIDEM TARTRATE 10 MG TABLET PO PRN (13:00)
[2023-03-14] MEDS ORDERED: ZOLPIDEM TARTRATE 10 MG TABLET PO PRN (13:00)
[2023-03-14] MEDS ORDERED: LORAZEPAM 1 MG TABLET FOR AGITATION PO PRN (13:00)
== END 2023-01-26 13:30 | disposition home or self-care (01) | DRG 951 ==
LOC: GPS 14:20 → MED 01-21 19:24
PROVIDERS: ADMIT Psychiatry & Neurology Psychiatry; ATTEND Psychiatry & Neurology Psychiatry
DX: Z00.6 Encounter for examination for normal comparison and control in clinical research program (principal); F20.0 Paranoid schizophrenia; Z79.899 Other long term (current) drug therapy
CPT/HCPCS: 36415; 80053-TC; 80061-TC; 82565-TC; 82962-TC; G0378